=== PATIENT | female | born 1960 | race Caucasian/White ===

== ENCOUNTER 2018-03-06 20:23 | Emergency (ER) | payer BC, OTHER ==
--- NOTE | 2018-03-06 20:31 | PDOC ---
Rapid Medical Evaluation Time Seen by Provider: 03/06/18 20:24 Medical Evaluation: 03/06/18 20:24 I have performed a brief in-person evaluation of this patient. The patient presents with a chief complaint of: "I feel my speech is slurred" which started yesterday afternoon. Pertinent physical exam findings: Slight right facial droop. No pronator drift. Muffled voice. I have ordered the following: CBC, CMP, Coags, head CT, UA The patient will proceed to the ED for further evaluation. Discharge Disposition - Diagnosis Facial droop - Referrals - Patient Instructions - Post Discharge Activity
[2018-03-06 20:36] VITALS: BP 164/90; PULSE 110; TEMP 98.1; BMI 35.9
[2018-03-06 21:31] LABS: BASO % 0.3 % (0-2.0); EOS % 0.9 % (0-4.5); HEMATOCRIT 40.5 % (32.4-45.2); HEMOGLOBIN 13.4 GM/dL (10.7-15.3); LYMPH % 22.3 % (8-40); MCH 28.8 pg (25.7-33.7); MEAN CELL VOLUME 87.2 fl (80-96); MEAN PLT VOLUME 8.8 fl (7.5-11.1); MONO % 6.5 % (3.8-10.2); PLATELET COUNT 360 K/MM3 (134-434); RBC 4.64 M/mm3 (3.60-5.2); RDW 15.8 % (11.6-15.6); WHITE BLOOD COUNT 11.5 K/mm3 (4.0-10.0)
[2018-03-06] MEDS ORDERED: SODIUM CHLORIDE 0.9% 1000 ML INFUS.BAG IV ONE (22:00)
[2018-03-06] MEDS ORDERED: DEXAMETHASONE SOD PHOSPHATE 10 MG/1 ML VIAL IVPUSH ONE (22:00)
[2018-03-06] MEDS ORDERED: ACETAMINOPHEN 1000 MG/100 ML VIAL (NON FORMULARY) IVPB ONE (22:00)
[2018-03-06] MEDS ORDERED: KETOROLAC TROMETHAMINE 15 MG/ML VIAL IVPUSH ONE (22:00)
[2018-03-06 22:01] LABS: INR 1.04 (0.82-1.09); PROTHROMBIN TIME (PATIENT) 11.7 SEC (9.7-13.0)
--- NOTE | 2018-03-06 22:17 | PDOC ---
History of Present Illness - General History Source: Patient Exam Limitations: No Limitations - History of Present Illness Initial Comments: 03/06/18 22:20 The patient is a 57 year old female with no significant past medical history who presents to the ED with complaints of sore throat and difficulty swallowing / talking for the past day. The patient was seen at urgent care earlier where she was diagnosed with Strep throat and discharged with azithromycin and Z pack. She reports taking the first dose of antibiotic. The patient came to the ED because she is concerned about the way she is talking. She states she has never experienced this before and is concerned she is having a stroke. She reports feeling a lump in the back of her throat as well as a dry cough.The patient denies any fevers, chills, nausea, vomiting, diarrhea, SOB, CP, or urinary complaints. She denies any headache, visual changes, numbness or tingling, or any other focal neurological deficits. She denies any sick contacts. <Laverne Anthony - Last Filed: 03/06/18 22:20> <Ann Haq - Last Filed: 03/07/18 01:36> - General Chief Complaint: Facial Droop Stated Complaint: PAIN Time Seen by Provider: 03/06/18 20:24 Past History <Laverne Anthony - Last Filed: 03/06/18 22:20> - Past Medical History COPD: No - Surgical History Appendectomy: Yes - Suicide/Smoking/Psychosocial Hx Smoking History: Never smoked <Ann Haq - Last Filed: 03/07/18 01:36> - Past Medical History Allergies/Adverse Reactions: Allergies Allergy/AdvReac Type Severity Reaction Status Date / Time Penicillins Allergy Verified 03/06/18 20:27 Sulfa (Sulfonamide Allergy Verified 03/06/18 20:27 Antibiotics) Home Medications: Ambulatory Orders NK [No Known Home Medication] 03/06/18 Review of Systems - Review of Systems Able to Perform ROS?: Yes Comments:: 03/06/18 22:20 GENERAL/CONSTITUTIONAL: No fever or chills. No weakness. HEAD, EYES, EARS, NOSE AND THROAT: (+) Sore throat, difficulty swallowing. No change in vision. No ear pain or discharge. CARDIOVASCULAR: No chest pain or shortness of breath. RESPIRATORY: No cough, wheezing, or hemoptysis. GASTROINTESTINAL: No nausea, vomiting, diarrhea or constipation. GENITOURINARY: No dysuria, frequency, or change in urination. MUSCULOSKELETAL: No joint or muscle swelling or pain. No neck or back pain. SKIN: No rash NEUROLOGIC: No headache, vertigo, loss of consciousness, or change in strength/ sensation. ENDOCRINE: No increased thirst. No abnormal weight change. HEMATOLOGIC/LYMPHATIC: No anemia, easy bleeding, or history of blood clots. ALLERGIC/IMMUNOLOGIC: No hives or skin allergy. All Other Systems: Reviewed and Negative <Laverne Anthony - Last Filed: 03/06/18 22:20> *Physical Exam - Vital Signs Last Vital Signs Temp Pulse Resp BP Pulse Ox 98.1 F 110 H 18 164/90 98 03/06/18 20:33 03/06/18 20:33 03/06/18 20:33 03/06/18 20:33 03/06/18 20:33 - Physical Exam Comments: 03/06/18 22:21 GENERAL: Awake, alert, and fully oriented, in no acute distress HEAD: No signs of trauma EYES: PERRLA, EOMI, sclera anicteric, conjunctiva clear ENT: Posterior oropharynx is erythematous and swollen without any exudate. Auricles normal inspection, hearing grossly normal, nares patent. Moist mucosa NECK: Normal ROM, supple, no lymphadenopathy, JVD, or masses LUNGS: Breath sounds equal, clear to auscultation bilaterally. No wheezes, and no crackles HEART: Regular rate and rhythm, normal S1 and S2, no murmurs, rubs or gallops ABDOMEN: Soft, nontender, normoactive bowel sounds. No guarding, no rebound. No masses EXTREMITIES: Normal range of motion, no edema. No clubbing or cyanosis. No cords, erythema, or tenderness NEUROLOGICAL: Cranial nerves II through XII grossly intact. Normal speech, normal gait. 5/5 strength in bilateral upper and lower extremities. Sensation intact throughout. Normal cerebellar signs. Normal finger to nose. SKIN: Warm, Dry, normal turgor, no rashes or lesions noted. <Laverne Anthony - Last Filed: 03/06/18 22:20> - Vital Signs Last Vital Signs Temp Pulse Resp BP Pulse Ox 98.1 F 110 H 18 164/90 98 03/06/18 20:33 03/06/18 20:33 03/06/18 20:33 03/06/18 20:33 03/06/18 20:33 <Ann Haq - Last Filed: 03/07/18 01:36> Heart Score/ECG Review - ECG Intrepretation Comment:: 03/07/18 00:28 sinus at 74, nl axis, nl interval, no acute st/t wave findings <Ann Haq - Last Filed: 03/07/18 01:36> ED Treatment Course - LABORATORY CBC & Chemistry Diagram: 03/06/18 21:24 03/06/18 21:24 - ADDITIONAL ORDERS Additional order review: Laboratory Results 03/06/18 21:24 Blood Type Cancelled Antibody Screen Cancelled 03/06/18 21:24 RBC 4.64 MCV 87.2 MCHC 33.0 RDW 15.8 H MPV 8.8 Neutrophils % 70.0 Lymphocytes % 22.3 Monocytes % 6.5 Eosinophils % 0.9 Basophils % 0.3 <Laverne Anthony - Last Filed: 03/06/18 22:20> - LABORATORY CBC & Chemistry Diagram: 03/06/18 21:24 03/06/18 21:24 - ADDITIONAL ORDERS Additional order review: Laboratory Results 03/06/18 21:24 Blood Type Cancelled Antibody Screen Cancelled 03/06/18 21:24 RBC 4.64 MCV 87.2 MCHC 33.0 RDW 15.8 H MPV 8.8 Neutrophils % 70.0 Lymphocytes % 22.3 Monocytes % 6.5 Eosinophils % 0.9 Basophils % 0.3 <Ann Haq - Last Filed: 03/07/18 01:36> Medical Decision Making - Medical Decision Making 03/06/18 22:17 a/p: 57yo female with difficulty talking today -woke up with difficulty talking - hot potato voice on exam -went to urgent care and was dx with strep throat - started on azithromycin and prednisone -did not take the steroids - was concerned about her speaking and voice changes - no slurred speech , no unilateral weakness -no paresthesias, no weakness, no facial droop, no sensory changes -pt requesting to hold of on the ordered head ct at this time given + strep throat and hot potato voice as cause of voice changes. -will give ivf hydraiton, decadron iv, tylenol, toradol and reassess 03/07/18 01:29 no acute infarct on head ct L [facility]aggoner radiata low density of indeterminate age - will give neuro follow up for poss demyelinating disease pt feeling better has abx and steroids for strep throat 03/07/18 01:35 outpt strep + pending culture rapid strep negative <Ann Haq - Last Filed: 03/07/18 01:36> *DC/Admit/Observation/Transfer - Attestations Scribe Attestion: 03/06/18 22:25 Documentation prepared by Laverne Anthony, acting as medical terminologist for Ann Haq DO. <Laverne Anthony - Last Filed: 03/06/18 22:20> - Discharge Dispostion Decision to Admit order: No - Attestations Physician Attestion: 03/07/18 01:34 I, Dr. Ann Haq DO, attest that this document has been prepared under my direction and personally reviewed by me in its entirety. I further attest, that it accurately reflects all work, treatment, procedures and medical decision -making performed by me. <Ann Haq - Last Filed: 03/07/18 01:36> Diagnosis at time of Disposition: Strep throat - Discharge Dispostion Disposition: HOME Condition at time of disposition: Stable - Referrals Referrals: Kenyon Shi MD [Staff Physician] - Atul Arteaga MD [Staff Physician] - Chris Hewitt MD [Staff Physician] - - Patient Instructions Printed Discharge Instructions: DI for Strep Throat Additional Instructions: Please take all antibiotics as prescribed. Please return to the ED with any further concerns. If you feel your voice does not improve please follow up with the neurologist. Please make an appointment to see your PMD in 2 days. - Post Discharge Activity Forms/Work/School Notes: Back to Work
[2018-03-06] MEDS ORDERED: DEXAMETHASONE SOD PHOSPHATE 10 MG/1 ML VIAL ONE (22:23)
[2018-03-06] MEDS ORDERED: ACETAMINOPHEN INJECTION 100 ML IVPB ONE (22:24)
[2018-03-06] MEDS ORDERED: KETOROLAC TROMETHAMINE 15 MG/ML VIAL ONE (22:24)
[2018-03-06 22:28] LABS: ANION GAP 6 (8-16); BLOOD UREA NITROGEN 12 mg/dL (7-18); CALCIUM 8.9 mg/dL (8.5-10.1); CHLORIDE 108 mmol/L (98-107); CO2 27 mmol/L (21-32); GLUCOSE,RANDOM 93 mg/dL (74-106); POTASSIUM 4.2 mmol/L (3.5-5.1); SODIUM 141 mmol/L (136-145)
[2018-03-06 22:32] LABS: ALK PHOS 114 U/L (45-117); BILIRUBIN,TOTAL 0.3 mg/dL (0.2-1.0); CREATININE 0.8 mg/dL (0.55-1.02); SGOT/AST 16 U/L (15-37); SGPT/ALT 24 U/L (12-78); TOT PROT 8.1 g/dl (6.4-8.2)
[2018-03-07 00:31] LABS: URINE APPEARANCE SLCLOUDY; URINE BILIRUBIN NEGATIVE (<2.0 mg/dL); URINE COLOR YELLOW; URINE GLUCOSE (UA) NEGATIVE (NEGATIVE); URINE KETONE NEGATIVE (NEGATIVE); URINE LEUK ESTERASE NEGATIVE (NEGATIVE); URINE NITRITE NEGATIVE (NEGATIVE); URINE PROTEIN NEGATIVE (NEGATIVE); URINE UROBILINOGEN NEGATIVE mg/dL (0.2-1.0)
--- NOTE | 2018-03-07 11:42 | EKG ---
Test Reason : Blood Pressure : / mmHG Vent. Rate : 074 BPM Atrial Rate : 074 BPM P-R Int : 126 ms QRS Dur : 070 ms QT Int : 386 ms P-R-T Axes : 010 044 017 degrees QTc Int : 428 ms NORMAL SINUS RHYTHM NORMAL ECG WHEN COMPARED WITH ECG OF 21-JUL-2004 22:07, NO SIGNIFICANT CHANGE WAS FOUND Confirmed by DENYS AVENDANO MD ([id number]) on 03/07/2018 11:42:38 AM Referred By: Confirmed By:DENYS AVENDANO MD
== END 2018-03-07 01:59 | disposition home or self-care (01) ==
LOC: JER 20:23
PROC: 3E033NZ Introduction of Analgesics, Hypnotics, Sedatives into Peripheral Vein, Percutaneous Approach (ICD-10-PCS; principal; 2018-03-06)
PROC: 3E0333Z Introduction of Anti-inflammatory into Peripheral Vein, Percutaneous Approach (ICD-10-PCS; 2018-03-06)
PROC: 3E0333Z Introduction of Anti-inflammatory into Peripheral Vein, Percutaneous Approach (ICD-10-PCS; 2018-03-06)
DX: J02.0 Streptococcal pharyngitis (principal); B95.5 Unspecified streptococcus as the cause of diseases classified elsewhere
CPT/HCPCS: 36415; 70450-TC; 80053; 81003; 85025; 85610; 87070; 87430; 87633; 93005; 93010; 99282-25; 99285-25; J0131; J1100; J7030

== ENCOUNTER 2018-03-07 16:51 | Inpatient (IN) | payer BC, OTHER ==
--- NOTE | 2018-03-07 17:01 | PDOC ---
Rapid Medical Evaluation Time Seen by Provider: 03/07/18 16:56 Medical Evaluation: Allergies Allergy/AdvReac Type Severity Reaction Status Date / Time Penicillins Allergy Verified 03/06/18 20:27 Sulfa (Sulfonamide Allergy Verified 03/06/18 20:27 Antibiotics) 03/07/18 16:56 Pt c/o: abnormal findings on head ct last night, here for mri pt on exam: vss, pt with mild garbled speech, ao x 3 Pt ordered for: none ( needs MRI) p to proceed to the ED Discharge Disposition - Diagnosis Speech abnormality - Referrals - Patient Instructions - Post Discharge Activity
--- NOTE | 2018-03-07 18:14 | PDOC ---
History of Present Illness - General History Source: Patient Exam Limitations: No Limitations - History of Present Illness Initial Comments: 03/07/18 18:16 The patient is a 57 year old female with no significant past medical history who presents to the emergency department for evaluation of questionable head CT result and hoarse voice since yesterday morning. The patient reports having a hoarse voice attributed to strep throat. The patient reports being seen in ED last night (03/06) for sore throat, hoarse voice, and difficulty speaking. She reports having a positive strep swab after visiting her PCP at [facility] yesterday and was prescribed Zithromax and Prednisone. The patient reports increasing difficulty speaking and is worried about potential stroke since her [id number] had a stroke 6 weeks prior. She states she was advised to visit the ED today for evaluation of abnormal head CT reading which revealed small left lucency in waggoner radiata concerning for possible demyelinating disease or possible ms, and is here for an MRI. She notes she had a uti in November and was on antibiotics, but had a fever for the duration of the illness, which resolved. She also states she recently was diagnosed with erythema nodosum on her legs. Of note, the patient's reports that the patient received a perspinal surgery for abscess 6 weeks ago at [facility] and was on antibiotics(not sure what type) for 21 days. The patient denies chest pain, shortness of breath, headache, and dizziness. Denies fevers, chills, nausea, vomiting, diarrhea, and constipation. Denies dysuria, frequency, urgency, and hematuria. Denies sick contact. Allergies: Penicillins and Sulfonamide antibiotics. Past surgical history: Appendectomy and . Perispinal surgery for abscess (2018) Social history: No reported cigarette, alcohol, or drug use. <Patricia Guzman - Last Filed: 03/07/18 20:04> <Ann Haq - Last Filed: 03/08/18 01:39> - General Chief Complaint: Revisit,Radiology Variance Stated Complaint: SORE THROAT Time Seen by Provider: 03/07/18 16:56 Past History <Patricia Guzman - Last Filed: 03/07/18 20:04> - Past Medical History COPD: No - Surgical History Appendectomy: Yes - Suicide/Smoking/Psychosocial Hx Smoking History: Never smoked Hx Alcohol Use: No Drug/Substance Use Hx: No Substance Use Type: None <Ann Haq - Last Filed: 03/08/18 01:39> - Past Medical History Allergies/Adverse Reactions: Allergies Allergy/AdvReac Type Severity Reaction Status Date / Time Penicillins Allergy Difficulty Verified 03/07/18 16:56 Breathing Sulfa (Sulfonamide Allergy Rash Verified 03/07/18 16:56 Antibiotics) Home Medications: Ambulatory Orders NK [No Known Home Medication] 03/06/18 Review of Systems - Review of Systems Able to Perform ROS?: Yes Comments:: GENERAL/CONSTITUTIONAL: No fever or chills. No weakness. HEAD, EYES, EARS, NOSE AND THROAT: (+)Sore throat. No change in vision. No ear pain or discharge. GASTROINTESTINAL: No nausea, vomiting, diarrhea or constipation. GENITOURINARY: No dysuria, frequency, or change in urination. CARDIOVASCULAR: No chest pain or shortness of breath. RESPIRATORY: No cough, wheezing, or hemoptysis. MUSCULOSKELETAL: No joint or muscle swelling or pain. No neck or back pain. SKIN: No rash NEUROLOGIC: No headache, vertigo, loss of consciousness, or change in strength/ sensation. ENDOCRINE: No increased thirst. No abnormal weight change. HEMATOLOGIC/LYMPHATIC: No anemia, easy bleeding, or history of blood clots. ALLERGIC/IMMUNOLOGIC: No hives or skin allergy. <Patricia Guzman - Last Filed: 03/07/18 20:04> *Physical Exam - Vital Signs Last Vital Signs Temp Pulse Resp BP Pulse Ox 98.3 F 116 H 22 126/114 98 03/07/18 16:57 03/07/18 16:57 03/07/18 16:57 03/07/18 16:57 03/07/18 16:57 - Physical Exam Comments: Constitutional: (+)Anxious. Awake, alert, oriented. Head: Normocephalic. Atraumatic Eyes: PERRL. EOMI. Conjunctivae are not pale. ENT: (+)Posterior pharynx is red.(+)Hot potato voice, posterior pharynx with exudates. Mucous membranes are moist and intact. Uvula midline. Neck: Supple. Full ROM. No lymphadenopathy. Cardiovascular: Regular rate. Regular rhythm. S1, S2 regular. Distal pulses are 2+ and symmetric. Pulmonary/Chest: No evidence of respiratory distress. Clear to auscultation bilaterally No wheezing, rales or rhonchi. Abdominal: Soft and non-distended. There is no tenderness. No rebound, guarding or rigidity. No organomegaly. No palpable masses. Good bowel sounds. Back: No CVA tenderness. Musculoskeletal: No edema. No cyanosis. No clubbing. Full range of motion in all extremities. Nocalf tenderness. Radial/pedal pulses are intact and 2+ bilaterally Skin: Skin is warm and dry. No petechiae. No purpura. Neurological: (+)Mild right asymmetric smile. Alert and oriented to person, place, and time. Psychiatric: Good eye contact. Normal interaction, affect and behavior. <Patricia Guzman - Last Filed: 03/07/18 20:04> - Vital Signs Last Vital Signs Temp Pulse Resp BP Pulse Ox 98.3 F 116 H 22 126/114 98 03/07/18 16:57 03/07/18 16:57 03/07/18 16:57 03/07/18 16:57 03/07/18 16:57 <Ann Haq - Last Filed: 03/08/18 01:39> Heart Score/ECG Review - ECG Intrepretation Comment:: 03/07/18 22:19 sinus at 76, nl axis, nl interval, no acute st/t wave findings <Ann Haq - Last Filed: 03/08/18 01:39> ED Treatment Course - LABORATORY CBC & Chemistry Diagram: 03/07/18 20:21 03/07/18 20:21 - RADIOLOGY Radiology Studies Ordered: Category Date Time Status BRAIN MRI W/O CONTRAST [MRI] Stat MRI 03/07/18 16:58 Taken <Ann Haq - Last Filed: 03/08/18 01:39> Medical Decision Making - Medical Decision Making Case discussed with Dr. Arteaga at 18:53. <Patricia Guzman - Last Filed: 03/07/18 20:04> - Medical Decision Making 03/07/18 18:10 a/p: 57yo female with a hoarse voice since waking up yesterday morning -seen in the ED last night -ct showed a lucency in the L waggoner radiata concerning for poss cva vs demyelinating disease -call placed to the patient to return to the ED for further eval with MRI -nonfocal neuro -rapid strep at [facility] by PMD was + - on azithro and prednisone no expressive or receptive aphasia -MRI ordered labs reviewed from yesterday and mildly elevated wbc 03/07/18 20:[address] Arteaga - recommends admission for cva workup echo, carotids, lipids lipitor 40 asa 81 daily will see patient in consult 03/07/18 20:49 with further hx intermittent infections x 3 months on and off abx will send cultures took abx today for strep throat will order ct soft tissue neck discussed case with dr bonilla at 7 who recommends calling patient with ct results pt updated on imaging results and plan agrees to stay for further eval 03/07/18 20:[address] Pabon - pending ct soft tissue neck - will need admission for cva workup ? embolic source? 03/07/18 22:57 ct soft tissue neck wihtout acute abscess 03/08/18 01:39 discussed lab and imaging results with the patient <Ann Haq - Last Filed: 03/08/18 01:39> *DC/Admit/Observation/Transfer - Attestations Scribe Attestion: Documentation prepared by Patricia Guzman, acting as nuclear medical tech for Ann Haq DO. <Patricia Guzman - Last Filed: 03/07/18 20:04> - Discharge Dispostion Decision to Admit order: Yes - Attestations Physician Attestion: 03/07/18 20:51 I, Dr. Ann Haq DO, attest that this document has been prepared under my direction and personally reviewed by me in its entirety. I further attest, that it accurately reflects all work, treatment, procedures and medical decision -making performed by me. <Ann Haq - Last Filed: 03/08/18 01:39> Diagnosis at time of Disposition: Speech abnormality, CVA (cerebral vascular accident), Strep throat - Discharge Dispostion Condition at time of disposition: Guarded
[2018-03-07] MEDS ORDERED: ASPIRIN 81 MG CHEWABLE TABLETS PO ONE (19:01)
[2018-03-07] MEDS ORDERED: ASPIRIN 81 MG CHEWABLE TABLETS ONE (19:21)
[2018-03-07 20:35] LABS: BASO % 0.2 % (0-2.0); HEMATOCRIT 40.4 % (32.4-45.2); HEMOGLOBIN 13.5 GM/dL (10.7-15.3); LYMPH % 9.9 % (8-40); MCH 28.9 pg (25.7-33.7); MCHC 33.4 g/dl (32.0-36.0); MEAN CELL VOLUME 86.6 fl (80-96); MEAN PLT VOLUME 9.1 fl (7.5-11.1); MONO % 3.5 % (3.8-10.2); NEUT % 86.4 % (42.8-82.8); PLATELET COUNT 383 K/MM3 (134-434); RBC 4.66 M/mm3 (3.60-5.2); RDW 15.6 % (11.6-15.6); WHITE BLOOD COUNT 15.5 K/mm3 (4.0-10.0)
[2018-03-07 21:01] LABS: INR 1.09 (0.82-1.09); PROTHROMBIN TIME (PATIENT) 12.3 SEC (9.7-13.0)
[2018-03-07 21:03] LABS: ACTIVATED PTT 29.6 SECONDS (26.9-34.4)
[2018-03-07 21:13] LABS: ALBUMIN 3.9 g/dl (3.4-5.0); ANION GAP 7 (8-16); BILIRUBIN,TOTAL 0.2 mg/dL (0.2-1.0); BLOOD UREA NITROGEN 16 mg/dL (7-18); CALCIUM 8.9 mg/dL (8.5-10.1); CHLORIDE 108 mmol/L (98-107); CHOLESTEROL 183 mg/dL (50-200); CO2 25 mmol/L (21-32); CREATININE 0.8 mg/dL (0.55-1.02); GLUCOSE,RANDOM 119 mg/dL (74-106); POTASSIUM 4.6 mmol/L (3.5-5.1); SGOT/AST 19 U/L (15-37); SGPT/ALT 24 U/L (12-78); SODIUM 140 mmol/L (136-145); TOT PROT 8.1 g/dl (6.4-8.2); TRIGLYCERIDES 65 mg/dL (35-160)
[2018-03-07 21:14] LABS: ALK PHOS 108 U/L (45-117); HDL CHOLESTEROL 52 mg/dL (40-60)
--- NOTE | 2018-03-07 21:41 | HP ---
CHIEF COMPLAINT:recalled for MRI findings PCP: [facility] HISTORY OF PRESENT ILLNESS: 57 yr old woman with no significant PMhx presented to ED yesterday for difficulty swallowing and talking for 1 day. She had been seen at urgent care and dx'd with strep throat (rapid bedside at urgent care was positive). She was started on Azithromycin 250mg po 1 tablet which she took yesterday and one dose today. This morning when she woke up she notes a change in her voice and trouble swallowing. As per her she was having trouble putting words together and the tone of her voice is harsher now than her usual. feels that speech is going in and out, this is still not her baseline for speech pattern and voice. She denies facial droop, asymmetrical loss of muscle tone, syncope, fevers. She was at [facility] in November and underwent a paraspinal abscess drainage. She had been having a rash in her legs, feeling weak and had a cyst that required drainage, was told that all cultures were negative for bacterial growth. The rash has since cleared, when she had a biopsy of the rash, she was told there was no pathology. ER course was notable for: (1) MRI (2) soft tissue neck CT (3) Recent Travel: none PAST MEDICAL HISTORY: denies HTN, HLD, DM. says she had a full physical last month with her physician at [facility] and was told she had no medical conditions. PAST SURGICAL HISTORY: x3, appendectomy age 4 Social History: Smoking: denies Alcohol:denies Drugs: denies Family History: denies Fm of strokes/DE, DM, HTN Allergies Penicillins Allergy (Verified 03/07/18 16:56) - was found on an allergy test at age 4 Difficulty Breathing Sulfa (Sulfonamide Antibiotics) Allergy (Verified 03/07/18 16:56) Rash HOME MEDICATIONS: Home Medications Medication Instructions Recorded NK [No Known Home Medication] 03/06/18 REVIEW OF SYSTEMS CONSTITUTIONAL: Absent: fever, chills, diaphoresis, generalized weakness, malaise, loss of appetite, weight change HEENT: Present:difficulty swallowing, throat pain, Absent: rhinorrhea, nasal congestion, throat swelling, , mouth swelling, visual changes CARDIOVASCULAR: Absent: chest pain, syncope, palpitations, irregular heart rate, lightheadedness , peripheral edema RESPIRATORY: Absent: cough, shortness of breath, dyspnea with exertion, orthopnea, wheezing, stridor, hemoptysis GASTROINTESTINAL: Absent: abdominal pain, abdominal distension, nausea, vomiting, diarrhea, constipation GENITOURINARY: Absent: dysuria, frequency, urgency, hesitancy, hematuria, flank pain MUSCULOSKELETAL: Absent: myalgia, arthralgia, joint swelling, back pain, neck pain SKIN: Absent: rash, itching, pallor HEMATOLOGIC/IMMUNOLOGIC: Absent: easy bleeding, easy bruising, lymphadenopathy, frequent infections ENDOCRINE: Absent: unexplained weight gain, unexplained weight loss, heat intolerance, cold intolerance NEUROLOGIC: Absent: headache, focal weakness or paresthesias, dizziness, unsteady gait, seizure, mental status changes PHYSICAL EXAMINATION Vital Signs - 24 hr 03/07/18 16:57 Temperature 98.3 F Pulse Rate 116 H Respiratory 22 Rate Blood Pressure 126/114 O2 Sat by Pulse 98 Oximetry (%) GENERAL: Awake, alert, and fully oriented, in no acute distress. HEAD: Normal with no signs of trauma. EYES: Pupils equal, round and reactive to light, extraocular movements intact, sclera anicteric, conjunctiva clear. No lid lag. EARS, NOSE, THROAT: oropharynx clear with erythema, no exudates, no tonsilar enlargement, Moist mucous membranes. NECK: Normal range of motion, supple without lymphadenopathy, JVD, or masses. LUNGS: Breath sounds equal, clear to auscultation bilaterally. No wheezes, and no crackles. No accessory muscle use. HEART: Regular rate and rhythm, normal S1 and S2 without murmur, rub or gallop. ABDOMEN: obese, Soft, nontender, not distended, normoactive bowel sounds, no guarding, no rebound, no masses. MUSCULOSKELETAL: Normal range of motion at all joints. No bony deformities or tenderness. No CVA tenderness. well-healed scar in upper thoracic spine. no paraspinal tenderness UPPER EXTREMITIES: 2+ radial pulses, warm, well-perfused. No cyanosis. No clubbing. No peripheral edema. LOWER EXTREMITIES: 2+ DP pulses, warm, well-perfused. No calf tenderness. No peripheral edema. NEUROLOGICAL: Cranial nerves II-XII intact. facial symmetry, 5/5 hand beader tender/ extension and flexion in triceps/biceps/wrists, hip extension, dorsi/plantar flexion. uvula and tongue midline PSYCHIATRIC: Cooperative. Good eye contact. Appropriate mood and affect. SKIN: Warm, dry, normal turgor, no rashes or lesions noted, normal capillary refill. Laboratory Results - last 24 hr 03/07/18 03/07/18 03/07/18 20:21 20:21 20:21 WBC 15.5 H D RBC 4.66 Hgb 13.5 Hct 40.4 MCV 86.6 MCH 28.9 MCHC 33.4 RDW 15.6 Plt Count 383 MPV 9.1 Neutrophils % 86.4 H D Lymphocytes % 9.9 D Monocytes % 3.5 L Eosinophils % 0.0 D Basophils % 0.2 PT with INR 12.30 INR 1.09 PTT (Actin FS) 29.6 Sodium 140 Potassium 4.6 Chloride 108 H Carbon Dioxide 25 Anion Gap 7 L BUN 16 Creatinine 0.8 Creat Clearance w eGFR > 60 Random Glucose 119 H Calcium 8.9 Total Bilirubin 0.2 D AST 19 ALT 24 Alkaline Phosphatase 108 Creatine Kinase 398 H Creatine Kinase Index 0.5 CK-MB (CK-2) 2.174 Troponin I < 0.02 Total Protein 8.1 Albumin 3.9 Triglycerides 65 Cholesterol 183 Total LDL Cholesterol 128 H HDL Cholesterol 52 ASSESSMENT/PLAN: 57 yr woman with recent hx of paraspinal cyst abscess drainage, being treated for strep throat found to have CVA on MRI admitted for further work-up #CVA work-up - Neuro consult Dr. Arteaga, pt not a candidate for tpa. will f.u in the am - carotid doppler, telemonitoring, echo, speech and swallow eval, physical therapy eval, neuro checks q4hr - lipitor given in the ED. lipid panel with total cholesterol <200, LDL not at goal, continue statin qHS - unclear what caused the stroke, concern is for possible septic emboli from an abscess - NPO until speech/swallow eval, bed rest until PT eval #Strep throat, likely the cause of leucocytosis - complete 5-day treatment, has received 2 days already, needs 3 more days, azithromycin 250mg po daily - r/o throat abscess with CT scan - r/o viral etiologies with respiratory multiplex PCR -DVT prophylaxis- heparin sc q8hrs -Diet: NPO until evaluation, appears to have tolerated pills well in ED Visit type - Emergency Visit Emergency Visit: Yes ED Registration Date: 03/07/18 Care time: The patient presented to the Emergency Department on the above date and was hospitalized for further evaluation of their emergent condition. - New Patient This patient is new to me today: Yes Date on this admission: 03/07/18 - Critical Care Critical Care patient: No Hospitalist Screening - Colonoscopy Questionnaire Colonoscopy Questionnaire: Colonoscopy Questionnaire - Patient: 50 - 75 years old and never had a screening colonoscopy: Unknown History of colon or rectal polyps, or CA: Unknown History of IBD, Crohn's disease or UC: Unknown History of abdominal radiation therapy as a child: Unknown - Relative: 1 with colon or rectal CA, or polyps at age 60 or younger: Unknown Colon or rectal CA diagnosed at age 45 or younger: Unknown Multiple relatives with colon or rectal CA: Unknown - Outcome: Screening Result: Negative Screen
[2018-03-07] MEDS ORDERED: ATORVASTATIN CA 40 MG TABLET (FP) PO ONE (22:20)
--- NOTE | 2018-03-07 22:33 | PN ---
Teaching Attending Note Name of Resident: Frank Okeefe ATTENDING PHYSICIAN STATEMENT I saw and evaluated the patient. Chart, data, imaging reviewed. I reviewed the resident's note and discussed the case with the resident. I agree with the resident's findings and plan as documented. SUBJECTIVE: 57yo woman who presented to ER 03/06 with c/o hoarseness and for last few days. She was diagnosed with strep throat at [facility] 2 days ago and given azithromycin (severe penicillin allergy) and prednisone. Came to ER yesterday for persistent hoarseness and d/c home, recalled after MRI of brain officially read small acute left frontal waggoner radiata infarct. Patient denied any neurological symptoms. She reports that her speech has improved since taking azithromycin and steroid. Dr. Arteaga of neurology was consulted and patient is not a candidate for TPA. OBJECTIVE: Last Vital Signs Temp Pulse Resp BP Pulse Ox 98.3 F 116 H 22 126/114 98 03/07/18 16:57 03/07/18 16:57 03/07/18 16:57 03/07/18 16:57 03/07/18 16:57 general -nontoxic appearing, nad, obese, hoarse voice heent - at, nc, oral pharynx with mild erythema but no exudates seen neck -supple, no neck lymphadenopathy appreciated, no obvious neck masses seen cv- s1+s2+rrr chest- cta b/l abdomen- soft, nt, BS+ skin- no rashes appreciated Neuro - no focal deficits seen, cranial nerves intact Abnormal Lab Results 03/07/18 03/07/18 20:21 20:21 WBC 15.5 H D Neutrophils % 86.4 H D Monocytes % 3.5 L Chloride 108 H Anion Gap 7 L Random Glucose 119 H Creatine Kinase 398 H Total LDL Cholesterol 128 H MRI of brain report reviewed. ASSESSMENT AND PLAN: 57yo woman with acute left frontal waggoner radiata infarct. Neurology consulted and aware. Not candidate for tpa. #Acute CVA -admit to telemetry -NPO -bed rest -transthoracic echo -b/l carotid doppler U/S -neurochecks q4hrs -neurology consult -speech and swallow eval -PT evaluation -ASA -statin #pharyngitis - diagnosed with strep throat in [facility], hoarseness, should rule out abscess in pharynx/neck. -contoninue azithromycin 250mg PO for 3 more days (5 day coarse ) -Neck soft tissue CT with contrast to r/o abscess -if fevers, can send blood cultures x2 -respiratory multiplex PCR -DVT prophylaxis- heparin sc
[2018-03-07] MEDS ORDERED: ATORVASTATIN CA 40 MG TABLET (FP) ONE (23:39)
[2018-03-08 05:00] VITALS: BMI 41.3
[2018-03-08] MEDS: HEPARIN NA (PORCINE) 5,000 UNITS/ML 1ML VIAL SQ SCH ×3 (05:26→22:03)
[2018-03-08 07:05] LABS: BASO % 0.1 % (0-2.0); HEMATOCRIT 36.6 % (32.4-45.2); HEMOGLOBIN 12.2 GM/dL (10.7-15.3); LYMPH % 16.1 % (8-40); MCHC 33.2 g/dl (32.0-36.0); MEAN CELL VOLUME 87.3 fl (80-96); MEAN PLT VOLUME 9.1 fl (7.5-11.1); MONO % 6.1 % (3.8-10.2); NEUT % 77.7 % (42.8-82.8); PLATELET COUNT 322 K/MM3 (134-434); RBC 4.19 M/mm3 (3.60-5.2); RDW 15.5 % (11.6-15.6); WHITE BLOOD COUNT 14.2 K/mm3 (4.0-10.0)
[2018-03-08 07:24] LABS: CHLORIDE 108 mmol/L (98-107); POTASSIUM 3.9 mmol/L (3.5-5.1); SODIUM 141 mmol/L (136-145)
[2018-03-08 07:30] LABS: ANION GAP 7 (8-16); BLOOD UREA NITROGEN 17 mg/dL (7-18); CALCIUM 8.5 mg/dL (8.5-10.1); CO2 26 mmol/L (21-32); CREATININE 0.7 mg/dL (0.55-1.02); GLUCOSE,RANDOM 102 mg/dL (74-106)
[2018-03-08 08:58] LABS: CHOLESTEROL 152 mg/dL (50-200); HDL CHOLESTEROL 39 mg/dL (40-60); MAGNESIUM 2.3 mg/dL (1.8-2.4); PHOSPHOROUS 3.4 mg/dL (2.5-4.9)
[2018-03-08 09:06] LABS: TRIGLYCERIDES 94 mg/dL (35-160)
--- NOTE | 2018-03-08 09:12 | PN ---
Teaching Attending Note Name of Resident: Cas Shipley ATTENDING PHYSICIAN STATEMENT I saw and evaluated the patient. I reviewed the resident's note and discussed the case with the resident. I agree with the resident's findings and plan as documented with exceptions below. SUBJECTIVE: Patient seen and examined. still with speech change, noted water drooping right angle of mouth while drinking. No coughing or choking. Feels a littler better, denies sore throat currently. OBJECTIVE: Vital Signs Period Temp Pulse Resp BP Sys/Odell Pulse Ox Last 24 Hr 97.5 F-98.3 F 61-116 18-22 126-165/73-114 96-98 Intake & Output 03/05/18 03/06/18 03/07/18 03/08/18 23:59 23:59 23:59 23:59 Intake Total 130 Balance 130 Weight 195 lb 218 lb 9.6 oz General: lying in bed in no acute distress Neuro: AAOx3, right facial droop, tongue deviated to left, facial sensation intact to gross touch, power 5/5 generalized, no pronator drift, babinski neg, DTR bilaterally symmetric, mild dysarthria noted HEENT: no tonsillar swelling or pharyngeal erythema noted, no discharge Chest: CTAB, no rales or wheezing Abdomen: soft, obese, NT Extremities: no edema Home Medication List Medication Instructions Recorded Confirmed Type NK [No Known Home Medication] 03/06/18 03/07/18 History Active Medications Generic Name Dose Route Start Last Admin Trade Name Freq PRN Reason Stop Dose Admin Aspirin 81 mg 03/08/18 10:00 Ecotrin - PO DAILY SANTOS Atorvastatin Calcium 40 mg 03/08/18 22:00 Lipitor - PO HS SANTOS Azithromycin 250 mg 03/08/18 10:00 Zithromax - PO 03/10/18 10:01 DAILY SANTOS Heparin Sodium (Porcine) 5,000 unit 03/08/18 06:00 03/08/18 05:26 Heparin - SQ Not Given TID [facility] Laboratory Results - last 24 hr 03/07/18 03/07/18 03/07/18 20:21 20:21 20:21 WBC 15.5 H D RBC 4.66 Hgb 13.5 Hct 40.4 MCV 86.6 MCH 28.9 MCHC 33.4 RDW 15.6 Plt Count 383 MPV 9.1 Neutrophils % 86.4 H D Lymphocytes % 9.9 D Monocytes % 3.5 L Eosinophils % 0.0 D Basophils % 0.2 PT with INR 12.30 INR 1.09 PTT (Actin FS) 29.6 Sodium 140 Potassium 4.6 Chloride 108 H Carbon Dioxide 25 Anion Gap 7 L BUN 16 Creatinine 0.8 Creat Clearance w eGFR > 60 Random Glucose 119 H Calcium 8.9 Phosphorus Magnesium Total Bilirubin 0.2 D AST 19 ALT 24 Alkaline Phosphatase 108 Creatine Kinase 398 H Creatine Kinase Index 0.5 CK-MB (CK-2) 2.174 Troponin I < 0.02 Total Protein 8.1 Albumin 3.9 Triglycerides 65 Cholesterol 183 Total LDL Cholesterol 128 H HDL Cholesterol 52 TSH 03/08/18 03/08/18 03/08/18 05:35 05:35 05:35 WBC 14.2 H RBC 4.19 Hgb 12.2 Hct 36.6 MCV 87.3 MCH 29.0 MCHC 33.2 RDW 15.5 Plt Count 322 MPV 9.1 Neutrophils % 77.7 Lymphocytes % 16.1 D Monocytes % 6.1 Eosinophils % 0.0 Basophils % 0.1 PT with INR INR PTT (Actin FS) Sodium 141 Potassium 3.9 Chloride 108 H Carbon Dioxide 26 Anion Gap 7 L BUN 17 Creatinine 0.7 Creat Clearance w eGFR Random Glucose 102 Calcium 8.5 Phosphorus 3.4 Cancelled Magnesium 2.3 Cancelled Total Bilirubin AST ALT Alkaline Phosphatase Creatine Kinase Creatine Kinase Index CK-MB (CK-2) Troponin I Total Protein Albumin Triglycerides 94 Cancelled Cholesterol 152 Cancelled Total LDL Cholesterol 107 H Cancelled HDL Cholesterol 39 L Cancelled TSH 1.24 Cancelled Microbiology 03/08/18 00:01 Nasopharyngeal Swab Influenza Types A,B Antigen (PATSY) - Final 03/08/18 00:01 Nasopharyngeal Swab - Final MRI brain results reviewed CT neck results reviewed Carotid doppler - neg for hemodynamically significant stenosis ASSESSMENT AND PLAN: 57 yof with sore throat/"hot potato" voice, recently diagnosed Strep throat outpatient comes with persistent speech changes, found with Acute left waggoner radiata and ?hippocampal CVA. -Acute left waggoner radiate/?hippocampal CVA, ?embolic, r/o infectious source -Streptococcal pharyngitis -H/o paraspinal abscess in 11/2017 Plan: Neuro consult. Neuro checks. MRI brain noted. ?Embolic. Continue telemetry, check 2D echo, cardiology input. GIven recent diagnosis on strep pharyngitis, infectious source on differential but low suspicion, follow up blood cultures. CT neck neg for collection or concerns. Add lipitor 40 mg hs. Continue ASA. speech/swallow janey. PT eval. Dispo pending resolution of medical issues. Plan discussed with patient in detail, all questions answered.
--- NOTE | 2018-03-08 09:37 | EKG ---
Test Reason : Blood Pressure : / mmHG Vent. Rate : 076 BPM Atrial Rate : 076 BPM P-R Int : 138 ms QRS Dur : 078 ms QT Int : 374 ms P-R-T Axes : -06 034 028 degrees QTc Int : 420 ms NORMAL SINUS RHYTHM NORMAL ECG WHEN COMPARED WITH ECG OF 07-MAR-2018 00:19, NO SIGNIFICANT CHANGE WAS FOUND Confirmed by JASON STREET MD ([id number]) on 03/08/2018 9:37:14 AM Referred By: Confirmed By:JASON STREET MD
--- NOTE | 2018-03-08 09:44 | CONSULT ---
Consult - text type - Consultation Consultation Note: Neurology CHIEF COMPLAINT:recalled for MRI findings PCP: [facility] HISTORY OF PRESENT ILLNESS: 57 yr old woman with no significant PMhx presented to ED one day before admission for difficulty swallowing and talking for 1 day. She had been seen at urgent care and dx'd with strep throat (rapid bedside at urgent care was positive). She was started on Azithromycin 250mg po 1 tablet which she took one dose as well as second dose. She woke up she notes a change in her voice and trouble swallowing. As per her she was having trouble putting words together and the tone of her voice is harsher now than her usual. feels that speech is going in and out, this is still not her baseline for speech pattern and voice. She denies facial droop, asymmetrical loss of muscle tone, syncope, fevers. She was at [facility] in November and underwent a paraspinal abscess drainage. She had been having a rash in her legs, feeling weak and had a cyst that required drainage, was told that all cultures were negative for bacterial growth. The rash has since cleared, when she had a biopsy of the rash, she was told there was no pathology. She completed MRI brain which I reviewed and discussed in detail. She was visibly upset this morning. Infarct noted in L frontal waggoner radiata but no extremity weakness. Carotid dopplers completed and without HD significant stenosis. Discussed taking daily ASA 81mg. LDL 128 and recommended statin to her. May benefit from speech therapy, her speech did seem better during my conversation and she admitted this as well. CT of neck also reviewed and negative. Recent Travel: none PAST MEDICAL HISTORY: denies HTN, HLD, DM. says she had a full physical last month with her physician at [facility] and was told she had no medical conditions. PAST SURGICAL HISTORY: x3, appendectomy age 4 Social History: Smoking: denies Alcohol:denies Drugs: denies Family History: denies Fm of strokes/GA, DM, HTN Allergies Penicillins Allergy (Verified 03/07/18 16:56) - was found on an allergy test at age 4 Difficulty Breathing Sulfa (Sulfonamide Antibiotics) Allergy (Verified 03/07/18 16:56) Rash HOME MEDICATIONS: Home Medications Medication Instructions Recorded NK [No Known Home Medication] 03/06/18 REVIEW OF SYSTEMS CONSTITUTIONAL: Absent: fever, chills, diaphoresis, generalized weakness, malaise, loss of appetite, weight change HEENT: Present:difficulty swallowing, throat pain, Absent: rhinorrhea, nasal congestion, throat swelling, , mouth swelling, visual changes CARDIOVASCULAR: Absent: chest pain, syncope, palpitations, irregular heart rate, lightheadedness , peripheral edema RESPIRATORY: Absent: cough, shortness of breath, dyspnea with exertion, orthopnea, wheezing, stridor, hemoptysis GASTROINTESTINAL: Absent: abdominal pain, abdominal distension, nausea, vomiting, diarrhea, constipation GENITOURINARY: Absent: dysuria, frequency, urgency, hesitancy, hematuria, flank pain MUSCULOSKELETAL: Absent: myalgia, arthralgia, joint swelling, back pain, neck pain SKIN: Absent: rash, itching, pallor HEMATOLOGIC/IMMUNOLOGIC: Absent: easy bleeding, easy bruising, lymphadenopathy, frequent infections ENDOCRINE: Absent: unexplained weight gain, unexplained weight loss, heat intolerance, cold intolerance NEUROLOGIC: Absent: headache, focal weakness or paresthesias, dizziness, unsteady gait, seizure, mental status changes PHYSICAL EXAMINATION Vital Signs Period Temp Pulse Resp BP Sys/Odell Pulse Ox Last 24 Hr 97.5 F-98.3 F 61-116 18-22 126-165/73-114 96-98 GENERAL: Awake, alert, and fully oriented, in no acute distress. HEAD: Normal with no signs of trauma. EYES: Pupils equal, round and reactive to light, extraocular movements intact, sclera anicteric, conjunctiva clear. No lid lag. EARS, NOSE, THROAT: oropharynx clear with erythema, no exudates, no tonsilar enlargement, Moist mucous membranes. NECK: Normal range of motion, supple without lymphadenopathy, JVD, or masses. LUNGS: Breath sounds equal, clear to auscultation bilaterally. No wheezes, and no crackles. No accessory muscle use. HEART: Regular rate and rhythm, normal S1 and S2 without murmur, rub or gallop. ABDOMEN: obese, Soft, nontender, not distended, normoactive bowel sounds, no guarding, no rebound, no masses. MUSCULOSKELETAL: Normal range of motion at all joints. No bony deformities or tenderness. No CVA tenderness. well-healed scar in upper thoracic spine. no paraspinal tenderness UPPER EXTREMITIES: 2+ radial pulses, warm, well-perfused. No cyanosis. No clubbing. No peripheral edema. LOWER EXTREMITIES: 2+ DP pulses, warm, well-perfused. No calf tenderness. No peripheral edema. NEUROLOGICAL: Cranial nerves II-XII intact, slightly hypophonic but no dysarthria, no facial symmetry, 5/5 hand oven dumper/extension and flexion in triceps/ biceps/wrists, hip extension, dorsi/plantar flexion. uvula and tongue midline PSYCHIATRIC: Cooperative. Good eye contact. Appropriate mood and affect. SKIN: Warm, dry, normal turgor, no rashes or lesions noted, normal capillary refill. CBCD WBC 14.2 K/mm3 (4.0-10.0) H 03/08/18 05:35 RBC 4.19 M/mm3 (3.60-5.2) 03/08/18 05:35 Hgb 12.2 GM/dL (10.7-15.3) 03/08/18 05:35 Hct 36.6 % (32.4-45.2) 03/08/18 05:35 MCV 87.3 fl (80-96) 03/08/18 05:35 MCHC 33.2 g/dl (32.0-36.0) 03/08/18 05:35 RDW 15.5 % (11.6-15.6) 03/08/18 05:35 Plt Count 322 K/MM3 (134-434) 03/08/18 05:35 MPV 9.1 fl (7.5-11.1) 03/08/18 05:35 CMP Sodium 141 mmol/L (136-145) 03/08/18 05:35 Potassium 3.9 mmol/L (3.5-5.1) 03/08/18 05:35 Chloride 108 mmol/L (98-107) H 03/08/18 05:35 Carbon Dioxide 26 mmol/L (21-32) 03/08/18 05:35 Anion Gap 7 (8-16) L 03/08/18 05:35 BUN 17 mg/dL (7-18) 03/08/18 05:35 Creatinine 0.7 mg/dL (0.55-1.02) 03/08/18 05:35 Creat Clearance w eGFR > 60 (>60) 03/07/18 20:21 Random Glucose 102 mg/dL (74-106) 03/08/18 05:35 Calcium 8.5 mg/dL (8.5-10.1) 03/08/18 05:35 Total Bilirubin 0.2 mg/dL (0.2-1.0) D 03/07/18 20:21 AST 19 U/L (15-37) 03/07/18 20:21 ALT 24 U/L (12-78) 03/07/18 20:21 Alkaline Phosphatase 108 U/L (45-117) 03/07/18 20:21 Total Protein 8.1 g/dl (6.4-8.2) 03/07/18 20:21 Albumin 3.9 g/dl (3.4-5.0) 03/07/18 20:21 CARDIAC ENZYMES Creatine Kinase 398 IU/L (26-192) H 03/07/18 20:21 Troponin I < 0.02 ng/ml (0.00-0.05) 03/07/18 20:21 ASSESSMENT/PLAN: 57 yr old woman with no significant PMhx presented to ED one day before admission for difficulty swallowing and talking for 1 day. She completed MRI brain which I reviewed and discussed in detail. Infarct noted in L frontal waggoner radiata but no extremity weakness. Carotid dopplers completed and without HD significant stenosis. Discussed taking daily ASA 81mg. LDL 128 and recommended statin to her. May benefit from speech therapy, her speech did seem better during my conversation and she admitted this as well. CT of neck also reviewed and negative. Telemetry monitoring Speech/swallow eval recommended No longer permissive HTN, goal range <160/90 for now <130/80 as outpatient DVT ppx
[2018-03-08] MEDS: ASPIRIN COATED 81 MG TABLET.EC PO SCH (10:21)
[2018-03-08] MEDS: AZITHROMYCIN 250 MG TABLET PO SCH (10:21)
--- NOTE | 2018-03-08 10:27 | CONSULT ---
Admitting History and Physical - Primary Care Physician PCP: Jason Foster - Admission History of Present Illness: 57 yr woman with recent hx of paraspinal cyst abscess drainage, being treated for strep throat admitted with persistent speech changes, found with Acute left waggoner radiata and ?hippocampal CVA. -Acute left waggoner radiate/?hippocampal CVA, ?embolic, r/o infectious source -Streptococcal pharyngitis -H/o paraspinal abscess in 11/2017 Pt reported speech production changes, swallowing difficulty with decreased ability in swallow initiation and phlegm production. History Source: Patient, Medical Record Limitations to Obtaining History: No Limitations - Past Medical History ...: No - Smoking History Smoking history: Never smoked Have you smoked in the past 12 months: No - Alcohol/Substance Use Hx Alcohol Use: No History - Admission Reason For Visit: CEREBROVASCULAR ACCIDENT (CVA) - Diagnostics X-ray: Report Reviewed CT Scan: Report Reviewed MRI: Report Reviewed (small acute left frontal waggoner radiata infarct.) - General Mental Status: Alert and Oriented, Awake and Alert, Able to Follow Commands Attention: Intact Ability to Follow Directions: Excellent Head/Neck Control: WFL - Hearing Hearing: Normal Speech Evaluation - Communication Primary Language: ITALIAN Communication: Yes: Dysarthria Oral Expression Ability: Yes: Mild Impairment - Speech Production Able to Make Needs Known: Yes: WNL Intelligibility: Yes: Mildly Impaired - Speech Characteristics Voice Loudness: Normal Voice Pitch: Yes: Normal Voice Phonatory-based Quality: Yes: Normal Speech Pattern: Impaired Nasal Resonance: Normal Articulation: Yes: Imprecise Rate of Speech: Intact - Language/Auditory Comprehension Follows: Yes: 2 Stage Simple Commands - Language/Verbal Expression Able to Respond to Simple Queries: Yes: WNL Able to Communicate Wants and Needs: Yes: WNL Functional Communication Status: Yes: WNL - Memory/Perception half-way Memory: Yes: WNL Short Term Memory: Yes: WNL - Swallow Evaluation/Bedside Assessment Current Nutritional Intake: Regular, Thin Liquids Oral Secretions: Yes: WFL (Reports "phlegm in throat") Dentition: Yes: Adequate Facial Symmetry at Rest: Facial Droop Right Facial Symmetry on Retraction: Facial Droop Right Against Resistance Opening: Normal Against Resistance Closing: Normal Pucker Lips: Droops Right Smile: Droops Right Lingual Movement: Deviates Left (slight) Lingual Movement Strgth Against Opposition: Normal Lingual Movement Characteristics: Normal Laryngeal Movement: Able to Palpate, Labored,delay initiation Rate of Intake: Slow/Holding Bolus Size: Small Labial Seal: Impaired Right Chewing: WFL Oral Prep Time: WFL A-P Transit: WFL Pocketing: None Timing of Swallow: Delayed Coughing/Throat Clear: No Change in Voice: No Recommendations - Speech Evaluation, Impression/Plan Impression: Pt presents with mild dysarthria with right facial weakness. She reports needing to swallow carefully, taking small sips with overtly good tolerance. - Dysphagia Impressions/Plan Dysphagia Impressions: Mild Impairment, Risk of Aspiration, Ongoing Evaluation *Silent aspiration: cannot be R/O at bedside Dysphagia Treatment Plan: Other (Pt given oromotor exercises for self practice.) Recommendations: Modified Barium Swallow (if cough, congestion, fever) - Recommendations Diet Consistency: Regular Medication Administration: Whole with water Liquids: Thin Liquids
--- NOTE | 2018-03-08 11:31 | CON.CARD ---
Cardiology Consult (text) - Consultation Consultation Note: cc:difficulty with speech hpi: 57 f no sig pmhx here with speech problems. Found to have new cva on MRI. No cp, sob, palps, dizzy, loc, pnd, orthopnea, le edema. pmh: per hpi psh: appendectomy social: no tob fam: dad mi 60s ros: per hpi; no nvd, fever, vision changes, muscle pain, gib, hematuria, dysuria meds: Home Medications Medication Instructions Recorded NK [No Known Home Medication] 03/06/18 pe: Vital Signs Period Temp Pulse Resp BP Sys/Odell Pulse Ox Last 24 Hr 97.5 F-98.3 F 61-116 18-22 126-165/73-114 96-98 nad no jvd rrr s1s2 no mrg cta bl nl eff aaox3 no le e/c/c abd nt nd pos bs no jaundice diaphoresis pos dp pt no carotid bruits Current Medications Generic Name Dose Route Start Last Admin Trade Name Freq PRN Reason Stop Dose Admin Aspirin 81 mg 03/08/18 10:00 03/08/18 10:21 Ecotrin - PO 81 mg DAILY SANTOS Administration Atorvastatin Calcium 40 mg 03/08/18 22:00 Lipitor - PO HS SANTOS Azithromycin 250 mg 03/08/18 10:00 03/08/18 10:21 Zithromax - PO 03/10/18 10:01 250 mg DAILY SANTOS Administration Heparin Sodium (Porcine) 5,000 unit 03/08/18 06:00 03/08/18 05:26 Heparin - SQ Not Given TID [facility] Laboratory Last Values WBC 14.2 K/mm3 (4.0-10.0) H 03/08/18 05:35 RBC 4.19 M/mm3 (3.60-5.2) 03/08/18 05:35 Hgb 12.2 GM/dL (10.7-15.3) 03/08/18 05:35 Hct 36.6 % (32.4-45.2) 03/08/18 05:35 MCV 87.3 fl (80-96) 03/08/18 05:35 MCH 29.0 pg (25.7-33.7) 03/08/18 05:35 MCHC 33.2 g/dl (32.0-36.0) 03/08/18 05:35 RDW 15.5 % (11.6-15.6) 03/08/18 05:35 Plt Count 322 K/MM3 (134-434) 03/08/18 05:35 MPV 9.1 fl (7.5-11.1) 03/08/18 05:35 Neutrophils % 77.7 % (42.8-82.8) 03/08/18 05:35 Lymphocytes % 16.1 % (8-40) D 03/08/18 05:35 Monocytes % 6.1 % (3.8-10.2) 03/08/18 05:35 Eosinophils % 0.0 % (0-4.5) 03/08/18 05:35 Basophils % 0.1 % (0-2.0) 03/08/18 05:35 PT with INR 12.30 SEC (9.7-13.0) 03/07/18 20:21 INR 1.09 (0.82-1.09) 03/07/18 20:21 PTT (Actin FS) 29.6 SECONDS (26.9-34.4) 03/07/18 20:21 Sodium 141 mmol/L (136-145) 03/08/18 05:35 Potassium 3.9 mmol/L (3.5-5.1) 03/08/18 05:35 Chloride 108 mmol/L (98-107) H 03/08/18 05:35 Carbon Dioxide 26 mmol/L (21-32) 03/08/18 05:35 Anion Gap 7 (8-16) L 03/08/18 05:35 BUN 17 mg/dL (7-18) 03/08/18 05:35 Creatinine 0.7 mg/dL (0.55-1.02) 03/08/18 05:35 Creat Clearance w eGFR > 60 (>60) 03/07/18 20:21 Random Glucose 102 mg/dL (74-106) 03/08/18 05:35 Hemoglobin A1c % 6.3 % (4.8-6.0) H 03/08/18 05:35 Calcium 8.5 mg/dL (8.5-10.1) 03/08/18 05:35 Phosphorus 3.4 mg/dL (2.5-4.9) 03/08/18 05:35 Magnesium 2.3 mg/dL (1.8-2.4) 03/08/18 05:35 Total Bilirubin 0.2 mg/dL (0.2-1.0) D 03/07/18 20:21 AST 19 U/L (15-37) 03/07/18 20:21 ALT 24 U/L (12-78) 03/07/18 20:21 Alkaline Phosphatase 108 U/L (45-117) 03/07/18 20:21 Creatine Kinase 398 IU/L (26-192) H 03/07/18 20:21 Creatine Kinase Index 0.5 % (0.0-5.0) 03/07/18 20:21 CK-MB (CK-2) 2.174 ng/mL (0.5-3.6) 03/07/18 20:21 Troponin I < 0.02 ng/ml (0.00-0.05) 03/07/18 20:21 Total Protein 8.1 g/dl (6.4-8.2) 03/07/18 20:21 Albumin 3.9 g/dl (3.4-5.0) 03/07/18 20:21 Triglycerides 94 mg/dL (35-160) 03/08/18 05:35 Cholesterol 152 mg/dL (50-200) 03/08/18 05:35 Total LDL Cholesterol 107 mg/dL (5-100) H 03/08/18 05:35 HDL Cholesterol 39 mg/dL (40-60) L 03/08/18 05:35 TSH 1.24 uIU/ml (0.358-3.74) 03/08/18 05:35 tele: sr cxr: clear lungs ecg: sr, nl intervals, no ischemic changes a/p: 57 f no sig pmhx here with speech problems. cva: -seen on mri -carotids w/o stenosis -echo pending -cont tele -on asa, statin -neuro following
--- NOTE | 2018-03-08 15:40 | MSN ---
Progress Note (short form) - Note Progress Note: CHIEF COMPLAINT: difficulty talking/swallowing HISTORY OF PRESENT ILLNESS: Annalisa Valle is a 57 year old female with no significant past medical history. Patient 2 days prior to admission was seen in an urgent care clinic with similar symptoms where a rapid strep test was performed and was positive. The patient was started on azithromycin at the time. Patient on this admission presented to the ED with trouble speaking, finding words, harsh voice, trouble swallowing. Her stated that this a change from her baseline voice. Patient had imaging performed and found a L waggoner radiata ischemic stroke and punctuate focus in the R hippocampal formation that may a manifestation of transient flobal amnesia. Patient was admitted and treated for ischemic stroke. Patient was seen and examined at the bedside. Today patient states that her voice has improved slightly but still notices slurring of her speech as well as some difficulty with swallowing liquids. Patient denies headaches, dizziness, lightheadedness, focal weakness, numbness/tingling, blurry vision, double vision , visual deficits, cp, sob, abd pain, n/v/c/d, extremity pain, back pain. PAST MEDICAL HISTORY: no significant past medical history PAST SURGICAL HISTORY: x3, appendectomy Social History: Smoking: denies Alcohol: denies Drugs: denies REQUESTING PROVIDER: CONSULT REQUEST: We have been asked to medically evaluate this patient for ( specify). REVIEW OF SYSTEMS: CONSTITUTIONAL: Absent: fever, chills, diaphoresis, generalized weakness, malaise, loss of appetite, weight change HEENT: Absent: rhinorrhea, nasal congestion, throat pain, throat swelling, difficulty swallowing, mouth swelling, ear pain, eye pain, visual changes CARDIOVASCULAR: Absent: chest pain, syncope, palpitations, irregular heart rate, lightheadedness , peripheral edema RESPIRATORY: Absent: cough, shortness of breath, dyspnea with exertion, orthopnea, wheezing, stridor, hemoptysis GASTROINTESTINAL: Absent: abdominal pain, abdominal distension, nausea, vomiting, diarrhea, constipation, melena, hematochezia GENITOURINARY: Absent: dysuria, frequency, urgency, hesitancy, hematuria, flank pain, genital pain MUSCULOSKELETAL: Absent: myalgia, arthralgia, joint swelling, back pain, neck pain SKIN: Absent: rash, itching, pallor HEMATOLOGIC/IMMUNOLOGIC: Absent: easy bleeding, easy bruising, lymphadenopathy, frequent infections ENDOCRINE: Absent: unexplained weight gain, unexplained weight loss, heat intolerance, cold intolerance NEUROLOGIC: dysphagia, dysarthria Absent: headache, focal weakness or paresthesias, dizziness, unsteady gait, seizure, mental status changes, bladder or bowel incontinence PSYCHIATRIC: Absent: anxiety, depression, suicidal or homicidal ideation, hallucinations. PHYSICAL EXAMINATION GENERAL: Awake, alert, and fully oriented, in no acute distress. HEAD: Normal with no signs of trauma. EYES: Pupils equal, round and reactive to light, extraocular movements intact, sclera anicteric, conjunctiva clear. No lid lag. EARS, NOSE, THROAT: Ears normal, nares patent, oropharynx clear without exudates. Moist mucous membranes. NECK: Normal range of motion, supple without lymphadenopathy, JVD, or masses. LUNGS: Breath sounds equal, clear to auscultation bilaterally. No wheezes, and no crackles. No accessory muscle use. HEART: Regular rate and rhythm, normal S1 and S2 without murmur, rub or gallop. ABDOMEN: Soft, nontender, not distended, normoactive bowel sounds, no guarding, no rebound, no masses. No hepatomegaly or splenomegaly. MUSCULOSKELETAL: Normal range of motion at all joints. No bony deformities or tenderness. No CVA tenderness. UPPER EXTREMITIES: 2+ pulses, warm, well-perfused. No cyanosis. No clubbing. Cap refill <2 seconds. No peripheral edema. LOWER EXTREMITIES: 2+ pulses, warm, well-perfused. No calf tenderness. No peripheral edema. NEUROLOGICAL: Visual leonardo intact, extraocular movements intact, sensation on face intact to gross touch and pinprick, facial droop on R, hearing intact to finger rub, mild palate sag on right, gag reflex intact, SCM and trapezius muscle strength 5/5, tongue with mild R deviation. Sensation intact to gross touch and pinprick in upper and lower extremities bilaterally. 5/5 muscle strength in upper and lower extremities bilaterally. 2/4 patellar, calcaneal, biceps, triceps reflexes. Proprioception intact. No dysmetria on finger to nose and heel to agarwal. PSYCHIATRIC: Cooperative. Good eye contact. Appropriate mood and affect. SKIN: Warm, dry, normal turgor, no rashes or lesions noted. Last Vital Signs Temp Pulse Resp BP Pulse Ox 97.5 F L 65 160/94 96 03/08/18 04:00 03/08/18 10:00 03/08/18 10:00 03/08/18 10:00 03/08/18 09:00 Allergies Allergy/AdvReac Type Severity Reaction Status Date / Time Penicillins Allergy Difficulty Verified 03/07/18 16:56 Breathing Sulfa (Sulfonamide Allergy Rash Verified 03/07/18 16:56 Antibiotics) CBC, BMP 03/08/18 05:35 03/08/18 05:35 CMP Sodium 141 mmol/L (136-145) 03/08/18 05:35 Potassium 3.9 mmol/L (3.5-5.1) 03/08/18 05:35 Chloride 108 mmol/L (98-107) H 03/08/18 05:35 Carbon Dioxide 26 mmol/L (21-32) 03/08/18 05:35 Anion Gap 7 (8-16) L 03/08/18 05:35 BUN 17 mg/dL (7-18) 03/08/18 05:35 Creatinine 0.7 mg/dL (0.55-1.02) 03/08/18 05:35 Creat Clearance w eGFR > 60 (>60) 03/07/18 20:21 Random Glucose 102 mg/dL (74-106) 03/08/18 05:35 Hemoglobin A1c % 6.3 % (4.8-6.0) H 03/08/18 05:35 Calcium 8.5 mg/dL (8.5-10.1) 03/08/18 05:35 Phosphorus 3.4 mg/dL (2.5-4.9) 03/08/18 05:35 Magnesium 2.3 mg/dL (1.8-2.4) 03/08/18 05:35 Total Bilirubin 0.2 mg/dL (0.2-1.0) D 03/07/18 20:21 AST 19 U/L (15-37) 03/07/18 20:21 ALT 24 U/L (12-78) 03/07/18 20:21 Alkaline Phosphatase 108 U/L (45-117) 03/07/18 20:21 Creatine Kinase 398 IU/L (26-192) H 03/07/18 20:21 Creatine Kinase Index 0.5 % (0.0-5.0) 03/07/18 20:21 CK-MB (CK-2) 2.174 ng/mL (0.5-3.6) 03/07/18 20:21 Troponin I < 0.02 ng/ml (0.00-0.05) 03/07/18 20:21 Total Protein 8.1 g/dl (6.4-8.2) 03/07/18 20:21 Albumin 3.9 g/dl (3.4-5.0) 03/07/18 20:21 Triglycerides 94 mg/dL (35-160) 03/08/18 05:35 Cholesterol 152 mg/dL (50-200) 03/08/18 05:35 Total LDL Cholesterol 107 mg/dL (5-100) H 03/08/18 05:35 HDL Cholesterol 39 mg/dL (40-60) L 03/08/18 05:35 TSH 1.24 uIU/ml (0.358-3.74) 03/08/18 05:35 Abnormal Lab Results 03/07/18 03/07/18 03/08/18 20:21 20:21 05:35 WBC 15.5 H D 14.2 H Neutrophils % 86.4 H D Monocytes % 3.5 L Chloride 108 H Anion Gap 7 L Random Glucose 119 H Hemoglobin A1c % Creatine Kinase 398 H Total LDL Cholesterol 128 H HDL Cholesterol 03/08/18 03/08/18 05:35 05:35 WBC Neutrophils % Monocytes % Chloride 108 H Anion Gap 7 L Random Glucose Hemoglobin A1c % 6.3 H Creatine Kinase Total LDL Cholesterol 107 H HDL Cholesterol 39 L Active Medications Generic Name Dose Route Start Last Admin Trade Name Rovertoq PRN Reason Stop Dose Admin Aspirin 81 mg 03/08/18 10:00 03/08/18 10:21 Ecotrin - PO 81 mg DAILY SANTOS Administration Atorvastatin Calcium 40 mg 03/08/18 22:00 Lipitor - PO HS SANTOS Azithromycin 250 mg 03/08/18 10:00 03/08/18 10:21 Zithromax - PO 03/10/18 10:01 250 mg DAILY SANTOS Administration Heparin Sodium (Porcine) 5,000 unit 03/08/18 06:00 03/08/18 13:22 Heparin - SQ Not Given TID SANTOS IMAGING: HEAD CT: elliptical in shape hypodensity in left waggoner radiata CHEST X-RAY: no acute pathology BRAIN MRI: acute infarct in left frontal waggoner radiata, punctuate focus in R hippocampal formation CT OF SOFT TISSUE NECK: no abscess noted, asymettric positioning of R tongue base. 6mm R upper lobe pulmonary nodule ECHOCARDIOGRAM: LVEF within normal limits, mild mitral regurgitation, tricuspid regurgitation, no pericardial effusions ASSESSMENT/PLAN: Patient is a 57 y/o female with no significant past medical history who presented with dysphagia and dysarthria s/p L waggoner radiata ischemic stroke. L waggoner radiata ischemia stroke - neurology consulted, Dr. Arteaga, recs appreciated - imaging as above - neuro checks - aspirin 81mg - Lipitor 40mg - Physical therapy evaluation - Speech and swallow evaluation noted mild impairment. recommended regular diet , thin liquids, Oromotor exercises - cardiology consulted for possible embolic origin of stroke, recs appreciated - telemetry - Echo as above - blood cultures for possible infectious source, CT of soft tissues negative Strep Pharyngitis - afebrile - leukocytosis 14.2 decreased from admission 15.5 - continue azithromycin from outpatient treatment, day 3 of abx F/E/N - no fluids currently needed - electrolytes within normal limits - replete as necessary - cholesterol controlled diet DVT PPx - heparin 5000 units subq tid - patient currently refusing Disposition - on telemetry
--- NOTE | 2018-03-08 17:31 | PN ---
Physical Exam: SUBJECTIVE: Patient seen and examined at bedside. Pt feels she still has difficulty forming words and spills water from the right side of her mouth when sipping from a cup. No other complaints. Denies change in vision, nausea, vomiting, diarrhea. OBJECTIVE: Vital Signs Period Temp Pulse Resp BP Sys/Odell Pulse Ox Last 24 Hr 97.5 F-98.4 F 61-77 18-20 133-165/73-94 96-98 GENERAL: The patient is awake, alert, and fully oriented, in no acute distress. HEAD: Normal with no signs of trauma. EYES: PERRL, extraocular movements intact, sclera anicteric, conjunctiva clear. No ptosis. ENT: oropharynx clear without exudates, moist mucous membranes. NECK: Trachea midline, full range of motion, supple. LUNGS: Breath sounds equal, clear to auscultation bilaterally, no wheezes, no crackles, no accessory muscle use. HEART: Regular rate and rhythm, S1, S2 without murmur, rub or gallop. ABDOMEN: Soft, nontender, nondistended, normoactive bowel sounds, no guarding, no rebound, no hepatosplenomegaly, no masses. EXTREMITIES: 2+ pulses, warm, well-perfused, no edema. NEUROLOGICAL: R facial droop. Dysarthric speech, gait not observed. Strength 5/ 5 throughout. Reflexes intact throughout. Sensation intact. PSYCH: Normal mood, normal affect. SKIN: Warm, dry, normal turgor, no rashes or lesions noted Laboratory Results - last 24 hr 03/07/18 03/07/18 03/07/18 20:21 20:21 20:21 WBC 15.5 H D RBC 4.66 Hgb 13.5 Hct 40.4 MCV 86.6 MCH 28.9 MCHC 33.4 RDW 15.6 Plt Count 383 MPV 9.1 Neutrophils % 86.4 H D Lymphocytes % 9.9 D Monocytes % 3.5 L Eosinophils % 0.0 D Basophils % 0.2 PT with INR 12.30 INR 1.09 PTT (Actin FS) 29.6 Sodium 140 Potassium 4.6 Chloride 108 H Carbon Dioxide 25 Anion Gap 7 L BUN 16 Creatinine 0.8 Creat Clearance w eGFR > 60 Random Glucose 119 H Hemoglobin A1c % Calcium 8.9 Phosphorus Magnesium Total Bilirubin 0.2 D AST 19 ALT 24 Alkaline Phosphatase 108 Creatine Kinase 398 H Creatine Kinase Index 0.5 CK-MB (CK-2) 2.174 Troponin I < 0.02 Total Protein 8.1 Albumin 3.9 Triglycerides 65 Cholesterol 183 Total LDL Cholesterol 128 H HDL Cholesterol 52 TSH 03/08/18 03/08/18 03/08/18 05:35 05:35 05:35 WBC 14.2 H RBC 4.19 Hgb 12.2 Hct 36.6 MCV 87.3 MCH 29.0 MCHC 33.2 RDW 15.5 Plt Count 322 MPV 9.1 Neutrophils % 77.7 Lymphocytes % 16.1 D Monocytes % 6.1 Eosinophils % 0.0 Basophils % 0.1 PT with INR INR PTT (Actin FS) Sodium 141 Potassium 3.9 Chloride 108 H Carbon Dioxide 26 Anion Gap 7 L BUN 17 Creatinine 0.7 Creat Clearance w eGFR Random Glucose 102 Hemoglobin A1c % Calcium 8.5 Phosphorus 3.4 Cancelled Magnesium 2.3 Cancelled Total Bilirubin AST ALT Alkaline Phosphatase Creatine Kinase Creatine Kinase Index CK-MB (CK-2) Troponin I Total Protein Albumin Triglycerides 94 Cancelled Cholesterol 152 Cancelled Total LDL Cholesterol 107 H Cancelled HDL Cholesterol 39 L Cancelled TSH 1.24 Cancelled 03/08/18 05:35 WBC RBC Hgb Hct MCV MCH MCHC RDW Plt Count MPV Neutrophils % Lymphocytes % Monocytes % Eosinophils % Basophils % PT with INR INR PTT (Actin FS) Sodium Potassium Chloride Carbon Dioxide Anion Gap BUN Creatinine Creat Clearance w eGFR Random Glucose Hemoglobin A1c % 6.3 H Calcium Phosphorus Magnesium Total Bilirubin AST ALT Alkaline Phosphatase Creatine Kinase Creatine Kinase Index CK-MB (CK-2) Troponin I Total Protein Albumin Triglycerides Cholesterol Total LDL Cholesterol HDL Cholesterol TSH Active Medications Generic Name Dose Route Start Last Admin Trade Name Freq PRN Reason Stop Dose Admin Aspirin 81 mg 03/08/18 10:00 03/08/18 10:21 Ecotrin - PO 81 mg DAILY SANTOS Administration Atorvastatin Calcium 40 mg 03/08/18 22:00 Lipitor - PO HS SANTOS Azithromycin 250 mg 03/08/18 10:00 03/08/18 10:21 Zithromax - PO 03/10/18 10:01 250 mg DAILY SANTOS Administration Heparin Sodium (Porcine) 5,000 unit 03/08/18 06:00 03/08/18 13:22 Heparin - SQ Not Given TID [facility] ASSESSMENT/PLAN: 57 yr woman with recent hx of paraspinal cyst abscess drainage, being treated for strep throat found to have CVA on MRI. Pt admitted for evaluation and treatment of stroke. #CVA -not a candidate for TPA -ASA -Lipitor -MRI significant for L frontal waggoner radiata CVA. Punctate lesion in R hippocampus, ? septic embolic -Neuro consult (Dr. Arteaga) appreciated -Carotid dopplers completed and without HD significant stenosis. -soft tissue neck CT neg for abscess. Tongue base asymmetric -PT -Speech pathology -Cardio consult (Dr. Huerta) appreciated #Strep Pharyngitis - afebrile - No erythema noted in pharynx on exam - leukocytosis 14.2 decreased from admission 15.5 - continue azithromycin from outpatient treatment, day 3 of abx #FEN -not on fluids -lytes wnl -low cholesterol diet #PPx -HSQ -SCDs #Dispo -admitted to tele for CVA workup Cas Shipley MD PGY-1 IM Visit type - Emergency Visit Emergency Visit: No - New Patient This patient is new to me today: No - Critical Care Critical Care patient: No
[2018-03-08] MEDS: ATORVASTATIN CA 40 MG TABLET (FP) PO SCH (22:19)
[2018-03-09] MEDS: HEPARIN NA (PORCINE) 5,000 UNITS/ML 1ML VIAL SQ SCH ×3 (06:55→21:05)
[2018-03-09 07:40] LABS: BASO % 0.5 % (0-2.0); EOS % 1.7 % (0-4.5); HEMATOCRIT 37.8 % (32.4-45.2); HEMOGLOBIN 12.4 GM/dL (10.7-15.3); LYMPH % 37.8 % (8-40); MCH 28.9 pg (25.7-33.7); MCHC 32.9 g/dl (32.0-36.0); MEAN CELL VOLUME 87.7 fl (80-96); MEAN PLT VOLUME 9.1 fl (7.5-11.1); MONO % 6.4 % (3.8-10.2); NEUT % 53.6 % (42.8-82.8); PLATELET COUNT 319 K/MM3 (134-434); RBC 4.31 M/mm3 (3.60-5.2); WHITE BLOOD COUNT 9.2 K/mm3 (4.0-10.0)
[2018-03-09 08:26] LABS: CHLORIDE 106 mmol/L (98-107); POTASSIUM 4.3 mmol/L (3.5-5.1); SODIUM 141 mmol/L (136-145)
--- NOTE | 2018-03-09 08:27 | PN ---
Progress Note, Physician Chief Complaint: cva History of Present Illness: pt has PMD with regular f/u in [facility] (Dr. Olmos). last seen 12/16. she denies any hx HPL, DM, or HTN or rx treatment for any of these conditions. bp was hi transiently during recent viral illness. no cp, sob, palpitations, syncope (brief fluttering in throat at home the day of the stroke) - Current Medication List Current Medications: Active Medications Aspirin (Ecotrin -) 81 mg PO DAILY [facility] Last Admin: 03/08/18 10:21 Dose: 81 mg Atorvastatin Calcium (Lipitor -) 40 mg PO HS [facility] Last Admin: 03/08/18 22:19 Dose: 40 mg Azithromycin (Zithromax -) 250 mg PO DAILY [facility] Stop: 03/10/18 10:01 Last Admin: 03/08/18 10:21 Dose: 250 mg Heparin Sodium (Porcine) (Heparin -) 5,000 unit SQ TID [facility] Last Admin: 03/09/18 06:55 Dose: Not Given - Objective Vital Signs: Vital Signs Temperature 97.7 F 03/09/18 06:00 Pulse Rate 58 L 03/09/18 06:00 Respiratory Rate 16 03/09/18 06:00 Blood Pressure 123/69 03/09/18 06:00 O2 Sat by Pulse Oximetry (%) 95 03/08/18 21:00 Constitutional: Yes: No Distress, Calm, Obese Cardiovascular: Yes: Regular Rate and Rhythm, S1, S2, Varicosities. No: Gallop , Murmur, Rub Respiratory: Yes: Regular, CTA Bilaterally. No: Accessory Muscle Use, Rales, Wheezes Extremities: No: Cold Edema: No Neurological: Yes: Alert, Oriented Psychiatric: No: Agitated Labs: CBC, BMP 03/09/18 07:00 INR, PTT INR 1.09 (0.82-1.09) 03/07/18 20:21 Assessment/Plan ecg: sr, nl intervals, no ischemic changes Echo 03/15: nl LV, nl RV, nl valves tele: NSR a/p: 57 f no sig pmhx here with speech problems sec to acute CVA. cva: -MRI with evidence of acute L brain ischemic infarct -carotids w/o stenosis, echo unrevealing -tele normal thus far -pt history today clearly rules out signif h/o atherosclerotic RF burden. she is pre-diabetic on labs here. she admits to unusually intense ("very severe") mental stress recently related to 's acute illness and her work. this combination of factors may be the culprit for her stroke. however i advised her that i would recommend she have RENETTA, which can either be done sunday afternoon before she leaves the hospital, of if she is otherwise ready for discharge sooner, could be safely done as outpt next week since the results would not be expected to immediately change tx approach. -d/w'd pt and , as well as hospitalist (irene) -will also plan outpt 30 day monitor, though notably, if she has PAF her CHADS- VASC score is 0 (except for female gender) and would be highly unlikely for afib to cause a stroke in her (risk is close to 0 in pts with her profile, in multiple studies of CHADS-VASC score) -on asa, statin. BP at target (w/o meds) -neuro input appreciated
[2018-03-09] MEDS ORDERED: DOCUSATE SODIUM 100 MG CAPSULE (FP) PO ONE (08:45)
[2018-03-09 08:46] LABS: ALBUMIN 3.4 g/dl (3.4-5.0); ALK PHOS 92 U/L (45-117); ANION GAP 7 (8-16); BILIRUBIN,TOTAL 0.4 mg/dL (0.2-1.0); BLOOD UREA NITROGEN 19 mg/dL (7-18); CALCIUM 8.3 mg/dL (8.5-10.1); CO2 28 mmol/L (21-32); CREATININE 0.8 mg/dL (0.55-1.02); GLUCOSE,RANDOM 91 mg/dL (74-106); SGOT/AST 15 U/L (15-37); SGPT/ALT 21 U/L (12-78); TOT PROT 6.9 g/dl (6.4-8.2)
--- NOTE | 2018-03-09 08:46 | PN ---
Physical Exam: SUBJECTIVE: Patient seen and examined at bedside. Pt complains of a sharp pain in her right breast, which she attributes to gas. She states she has not had a BM in 2 days and has had lots of belching and flatulence, which alleviated the discomfort somewhat. She also mentions a rash on her left arm which she got after her MRI. She states the contrast dye leaked onto her skin and it became red. Rash is not painful. No other complaints. OBJECTIVE: Vital Signs Period Temp Pulse Resp BP Sys/Odell Pulse Ox Last 24 Hr 97.2 F-98.4 F 58-77 16-20 120-160/67-94 95-96 GENERAL: The patient is awake, alert, and fully oriented, in no acute distress. HEAD: Normal with no signs of trauma. EYES: PERRL, extraocular movements intact, sclera anicteric, conjunctiva clear. No ptosis. ENT: oropharynx clear without exudates, moist mucous membranes. NECK: Trachea midline, full range of motion, supple. LUNGS: Breath sounds equal, clear to auscultation bilaterally, no wheezes, no crackles, no accessory muscle use. HEART: Regular rate and rhythm, S1, S2 without murmur, rub or gallop. ABDOMEN: Soft, nontender, nondistended, normoactive bowel sounds, no guarding, no rebound, no hepatosplenomegaly, no masses. EXTREMITIES: 2+ pulses, warm, well-perfused, no edema. NEUROLOGICAL: exam improved significantly from yesterday. speech is more clear and flows more fluidly. R facial droop. Dysarthric speech, gait not observed. Strength 5/5 throughout. Reflexes intact throughout. Sensation intact. PSYCH: Normal mood, normal affect. SKIN: Warm, dry, normal turgor, no rashes or lesions noted Laboratory Results - last 24 hr 03/08/18 03/08/18 03/08/18 05:35 05:35 05:35 WBC RBC Hgb Hct MCV MCH MCHC RDW Plt Count MPV Neutrophils % Lymphocytes % Monocytes % Eosinophils % Basophils % Sodium 141 Potassium 3.9 Chloride 108 H Carbon Dioxide 26 Anion Gap 7 L BUN 17 Creatinine 0.7 Random Glucose 102 Hemoglobin A1c % 6.3 H Calcium 8.5 Phosphorus 3.4 Cancelled Magnesium 2.3 Cancelled Triglycerides 94 Cancelled Cholesterol 152 Cancelled Total LDL Cholesterol 107 H Cancelled HDL Cholesterol 39 L Cancelled TSH 1.24 Cancelled 03/09/18 07:00 WBC 9.2 D RBC 4.31 Hgb 12.4 Hct 37.8 MCV 87.7 MCH 28.9 MCHC 32.9 RDW 16.0 H Plt Count 319 MPV 9.1 Neutrophils % 53.6 D Lymphocytes % 37.8 D Monocytes % 6.4 Eosinophils % 1.7 D Basophils % 0.5 D Sodium Potassium Chloride Carbon Dioxide Anion Gap BUN Creatinine Random Glucose Hemoglobin A1c % Calcium Phosphorus Magnesium Triglycerides Cholesterol Total LDL Cholesterol HDL Cholesterol TSH Active Medications Generic Name Dose Route Start Last Admin Trade Name Rovertoq PRN Reason Stop Dose Admin Aspirin 81 mg 03/08/18 10:00 03/08/18 10:21 Ecotrin - PO 81 mg DAILY [facility] Administration Atorvastatin Calcium 40 mg 03/08/18 22:00 03/08/18 22:19 Lipitor - PO 40 mg HS [facility] Administration Azithromycin 250 mg 03/08/18 10:00 03/08/18 10:21 Zithromax - PO 03/10/18 10:01 250 mg DAILY [facility] Administration Heparin Sodium (Porcine) 5,000 unit 03/08/18 06:00 03/09/18 06:55 Heparin - SQ Not Given TID S[facility]OS ASSESSMENT/PLAN: 57 yr woman with recent hx of paraspinal cyst abscess drainage, being treated for strep throat found to have CVA on MRI. Pt admitted for evaluation and treatment of stroke. #CVA -not a candidate for TPA -ASA -Lipitor -MRI significant for L frontal waggoner radiata CVA. Punctate lesion in R hippocampus, ? septic embolic -Neuro consult (Dr. Arteaga) appreciated -Carotid dopplers completed and without HD significant stenosis. -soft tissue neck CT neg for abscess: Tongue base asymmetric -Echo: unremarkable -PT -Speech pathology -Cardio consult (Dr. Huerta) appreciated #Strep Pharyngitis - afebrile - No erythema noted in pharynx on exam - leukocytosis resolved. - continue azithromycin from outpatient treatment, day 3 of abx #Constipation -colace #FEN -not on fluids -lytes wnl -low cholesterol diet #PPx: pt is refusing both HSQ and SCDs -HSQ -SCDs #Dispo -admitted to tele for CVA workup Cas Shipley MD PGY-1 IM Visit type - Emergency Visit Emergency Visit: No - New Patient This patient is new to me today: No - Critical Care Critical Care patient: No - Discharge Referral Referred to [facility] No
--- NOTE | 2018-03-09 09:05 | PN ---
Teaching Attending Note Name of Resident: Cas Shipely ATTENDING PHYSICIAN STATEMENT I saw and evaluated the patient. I reviewed the resident's note and discussed the case with the resident. I agree with the resident's findings and plan as documented with exceptions below. SUBJECTIVE: Patient seen and examined. feels right side tongue swollen, still with dysarthria, No new weakness or sensory changes OBJECTIVE: Vital Signs Period Temp Pulse Resp BP Sys/Odell Pulse Ox Last 24 Hr 97.2 F-98.4 F 58-77 16-20 120-160/67-94 95 Intake & Output 03/06/18 03/07/18 03/08/18 03/09/18 23:59 23:59 23:59 23:59 Intake Total 570 120 Balance 570 120 Weight 195 lb 218 lb 9.6 oz General: sitting in chair, no acute distress Neuro: AAOX3, right facial droop unchanged, mild tongue deviation to left , novisible uvular deviation but limited exam given strong gag, facial sensation intact bilaterally, dysarthria, otherwise unchanged exam Home Medication List Medication Instructions Recorded Confirmed Type NK [No Known Home Medication] 03/06/18 03/07/18 History Active Medications Generic Name Dose Route Start Last Admin Trade Name Rovertoq PRN Reason Stop Dose Admin Aspirin 81 mg 03/08/18 10:00 03/08/18 10:21 Ecotrin - PO 81 mg DAILY [facility] Administration Atorvastatin Calcium 40 mg 03/08/18 22:00 03/08/18 22:19 Lipitor - PO 40 mg HS [facility]OS Administration Azithromycin 250 mg 03/08/18 10:00 03/08/18 10:21 Zithromax - PO 03/10/18 10:01 250 mg DAILY [facility] Administration Heparin Sodium (Porcine) 5,000 unit 03/08/18 06:00 03/09/18 06:55 Heparin - SQ Not Given TID [facility] Laboratory Results - last 24 hr 03/08/18 03/08/18 03/09/18 05:35 05:35 07:00 WBC 9.2 D RBC 4.31 Hgb 12.4 Hct 37.8 MCV 87.7 MCH 28.9 MCHC 32.9 RDW 16.0 H Plt Count 319 MPV 9.1 Neutrophils % 53.6 D Lymphocytes % 37.8 D Monocytes % 6.4 Eosinophils % 1.7 D Basophils % 0.5 D Sodium Potassium Chloride Carbon Dioxide Anion Gap BUN Creatinine Creat Clearance w eGFR Random Glucose Hemoglobin A1c % 6.3 H Calcium Phosphorus 3.4 Magnesium 2.3 Total Bilirubin AST ALT Alkaline Phosphatase Total Protein Albumin Triglycerides 94 Cholesterol 152 Total LDL Cholesterol 107 H HDL Cholesterol 39 L TSH 1.24 05/18 07:00 WBC RBC Hgb Hct MCV MCH MCHC RDW Plt Count MPV Neutrophils % Lymphocytes % Monocytes % Eosinophils % Basophils % Sodium 141 Potassium 4.3 Chloride 106 Carbon Dioxide 28 Anion Gap 7 L BUN 19 H Creatinine 0.8 Creat Clearance w eGFR > 60 Random Glucose 91 Hemoglobin A1c % Calcium 8.3 L Phosphorus Magnesium Total Bilirubin 0.4 D AST 15 ALT 21 Alkaline Phosphatase 92 Total Protein 6.9 Albumin 3.4 Triglycerides Cholesterol Total LDL Cholesterol HDL Cholesterol TSH MRI brain/Carotid doppler/2D echo results reviewed ASSESSMENT AND PLAN: 57 yof with sore throat/"hot potato" voice, recently diagnosed Strep throat outpatient comes with persistent speech changes, found with Acute left waggoner radiata and ?hippocampal CVA. 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 Neuro checks. MRI brain noted. No events on telemetry. Cardiology input/2D echo results noted. Blood cultures neg so far. Azithromycin [address] neck neg for collection or concerns. lipitor 40 mg hs. Continue ASA. speech/swallow eval, will need outpatient speech therapy. PT eval noted, home with assist Dispo plan for home d/c in 24 hours if no concerns. Plan discussed with patient in detail, all questions answered.
[2018-03-09] MEDS: AZITHROMYCIN 250 MG TABLET PO SCH (09:29)
[2018-03-09] MEDS: ASPIRIN COATED 81 MG TABLET.EC PO SCH (09:29)
--- NOTE | 2018-03-09 12:08 | PN ---
Progress Note (short form) - Note Progress Note: Neurology HISTORY OF PRESENT ILLNESS: 57 yr old woman with no significant PMhx presented to ED one day before admission for difficulty swallowing and talking for 1 day. She had been seen at urgent care and dx'd with strep throat (rapid bedside at urgent care was positive). She was started on Azithromycin 250mg po 1 tablet which she took one dose as well as second dose. She woke up she notes a change in her voice and trouble swallowing. As per her she was having trouble putting words together and the tone of her voice is harsher now than her usual. felt that speech was going in and out, this is still not her baseline for speech pattern and voice. MRI completed, Infarct noted in L frontal waggoner radiata but no extremity weakness. Carotid dopplers completed and without HD significant stenosis. Echo reviewed and normal LV function. All were discussed today. Discussed taking daily ASA 81mg again. CT of neck also reviewed and negative. Reports speech is better, planned for modified barium swallow on sunday, per primary team. Active Medications Aspirin (Ecotrin -) [address] [facility] Last Admin: 03/09/18 09:29 Dose: 81 mg Atorvastatin Calcium (Lipitor -) [address] [facility] Last Admin: 03/08/18 22:19 Dose: 40 mg Azithromycin (Zithromax -) [address] [facility] Stop: 03/10/18 10:01 Last Admin: 03/09/18 09:29 Dose: 250 mg Heparin Sodium (Porcine) (Heparin -) 5,[address] [facility] Last Admin: 03/09/18 06:55 Dose: Not Given PHYSICAL EXAMINATION Vital Signs Period Temp Pulse Resp BP Sys/Odell Pulse Ox Last 24 Hr 97.2 F-98.4 F 58-77 16-20 120-147/67-76 95-98 GENERAL: Awake, alert, and fully oriented, in no acute distress. HEAD: Normal with no signs of trauma. EYES: Pupils equal, round and reactive to light, extraocular movements intact, sclera anicteric, conjunctiva clear. No lid lag. EARS, NOSE, THROAT: oropharynx clear with erythema, no exudates, no tonsilar enlargement, Moist mucous membranes. NECK: Normal range of motion, supple without lymphadenopathy, JVD, or masses. LUNGS: Breath sounds equal, clear to auscultation bilaterally. No wheezes, and no crackles. No accessory muscle use. HEART: Regular rate and rhythm, normal S1 and S2 without murmur, rub or gallop. ABDOMEN: obese, Soft, nontender, not distended, normoactive bowel sounds, no guarding, no rebound, no masses. MUSCULOSKELETAL: Normal range of motion at all joints. No bony deformities or tenderness. No CVA tenderness. well-healed scar in upper thoracic spine. no paraspinal tenderness UPPER EXTREMITIES: 2+ radial pulses, warm, well-perfused. No cyanosis. No clubbing. No peripheral edema. LOWER EXTREMITIES: 2+ DP pulses, warm, well-perfused. No calf tenderness. No peripheral edema. 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 uvula and tongue midline PSYCHIATRIC: Cooperative. Good eye contact. Appropriate mood and affect. SKIN: Warm, dry, normal turgor, no rashes or lesions noted, normal capillary refill. CBCD WBC 9.2 K/mm3 (4.0-10.0) D 03/09/18 07:00 RBC 4.31 M/mm3 (3.60-5.2) 03/09/18 07:00 Hgb 12.4 GM/dL (10.7-15.3) 03/09/18 07:00 Hct 37.8 % (32.4-45.2) 03/09/18 07:00 MCV 87.7 fl (80-96) 03/09/18 07:00 MCHC 32.9 g/dl (32.0-36.0) 03/09/18 07:00 RDW 16.0 % (11.6-15.6) H 03/09/18 07:00 Plt Count 319 K/MM3 (134-434) 03/09/18 07:00 MPV 9.1 fl (7.5-11.1) 03/09/18 07:00 CMP Sodium 141 mmol/L (136-145) 03/09/18 07:00 Potassium 4.3 mmol/L (3.5-5.1) 03/09/18 07:00 Chloride 106 mmol/L (98-107) 03/09/18 07:00 Carbon Dioxide 28 mmol/L (21-32) 03/09/18 07:00 Anion Gap 7 (8-16) L 03/09/18 07:00 BUN 19 mg/dL (7-18) H 03/09/18 07:00 Creatinine 0.8 mg/dL (0.55-1.02) 03/09/18 07:00 Creat Clearance w eGFR > 60 (>60) 03/09/18 07:00 Random Glucose 91 mg/dL (74-106) 03/09/18 07:00 Calcium 8.3 mg/dL (8.5-10.1) L 03/09/18 07:00 Total Bilirubin 0.4 mg/dL (0.2-1.0) D 03/09/18 07:00 AST 15 U/L (15-37) 03/09/18 07:00 ALT 21 U/L (12-78) 03/09/18 07:00 Alkaline Phosphatase 92 U/L (45-117) 03/09/18 07:00 Total Protein 6.9 g/dl (6.4-8.2) 03/09/18 07:00 Albumin 3.4 g/dl (3.4-5.0) 03/09/18 07:00 CARDIAC ENZYMES Creatine Kinase 398 IU/L (26-192) H 03/07/18 20:21 Troponin I < 0.02 ng/ml (0.00-0.05) 03/07/18 20:21 MRI brain reviewed Echo reviewed Carotid Doppler reviewed ASSESSMENT/PLAN: 57 yr old woman with no significant PMhx presented to ED one day before admission for difficulty swallowing and talking for 1 day. She completed MRI brain which I reviewed and discussed in detail. Infarct noted in L frontal waggoner radiata but no extremity weakness. Carotid dopplers completed and without HD significant stenosis Echo reviewed, normal LV function Discussed taking daily ASA 81mg. Continue Statin for hyperlipidemia planned for modified barium swallow Advised speaking as much as possible Facial exercises at bedside reviewed CT of neck also reviewed and negative. Telemetry monitoring No longer permissive HTN, goal range <130/90 DVT ppx Discussed with primary team
[2018-03-09] MEDS: ATORVASTATIN CA 40 MG TABLET (FP) PO SCH (21:05)
[2018-03-10] MEDS: HEPARIN NA (PORCINE) 5,000 UNITS/ML 1ML VIAL SQ SCH ×3 (05:35→21:12)
--- NOTE | 2018-03-10 09:18 | PN ---
Progress Note, Physician Chief Complaint: CVA History of Present Illness: feels well. thinks her speech is gradually improving. no cp, sob, palpit - Current Medication List Current Medications: Active Medications Aspirin (Ecotrin -) 81 mg PO DAILY [facility] Last Admin: 03/09/18 09:29 Dose: 81 mg Atorvastatin Calcium (Lipitor -) 40 mg PO HS [facility] Last Admin: 03/09/18 21:05 Dose: 40 mg Azithromycin (Zithromax -) 250 mg PO DAILY [facility] Stop: 03/10/18 10:01 Last Admin: 03/09/18 09:29 Dose: 250 mg Heparin Sodium (Porcine) (Heparin -) 5,000 unit SQ TID [facility] Last Admin: 03/10/18 05:35 Dose: Not Given - Objective Vital Signs: Vital Signs Temperature 98.0 F 03/10/18 06:00 Pulse Rate 69 03/10/18 06:00 Respiratory Rate 20 03/10/18 06:00 Blood Pressure 105/61 03/10/18 06:00 O2 Sat by Pulse Oximetry (%) 98 03/09/18 21:00 Constitutional: Yes: Well Nourished, No Distress, Calm Cardiovascular: Yes: Regular Rate and Rhythm, S1, S2. No: Gallop, Murmur Respiratory: Yes: Regular, CTA Bilaterally. No: Accessory Muscle Use, Rales, Wheezes Extremities: No: Cold Edema: No Neurological: Yes: Alert, Oriented Psychiatric: No: Agitated Labs: CBC, BMP 03/09/18 07:00 03/09/18 07:00 INR, PTT INR 1.09 (0.82-1.09) 03/07/18 20:21 Assessment/Plan ecg: sr, nl intervals, no ischemic changes Echo 03/15: nl LV, nl RV, nl valves tele: NSR a/p: 57 f no sig pmhx here with speech problems sec to acute CVA. cva: -MRI with evidence of acute L brain ischemic infarct -carotids w/o stenosis, echo unrevealing -tele normal thus far -? etiology of stroke (Met Syndrome plus intense mental stress?). -for RENETTA tomorrow -will also plan outpt 30 day monitor, though notably, if she has PAF her CHADS- VASC score is 0 (except for female gender) and would be highly unlikely for afib to cause a stroke in her (risk is close to 0 in pts with her profile, in multiple studies of CHADS-VASC score) -on asa, statin. BP at target (w/o meds) -neuro input appreciated
[2018-03-10] MEDS: ASPIRIN COATED 81 MG TABLET.EC PO SCH (09:19)
[2018-03-10] MEDS: AZITHROMYCIN 250 MG TABLET PO SCH (09:19)
--- NOTE | 2018-03-10 12:17 | PN ---
Progress Note (short form) - Note Progress Note: Neurology HISTORY OF PRESENT ILLNESS: 57 yr old woman with no significant PMhx presented to ED one day before admission for difficulty swallowing and talking for 1 day. She had been seen at urgent care and dx'd with strep throat (rapid bedside at urgent care was positive). She was started on Azithromycin 250mg po 1 tablet which she took one dose as well as second dose. She woke up she notes a change in her voice and trouble swallowing. As per her she was having trouble putting words together and the tone of her voice is harsher now than her usual. felt that speech was going in and out, this is still not her baseline for speech pattern and voice. MRI completed, Infarct noted in L frontal waggoner radiata but no extremity weakness. Carotid dopplers completed and without HD significant stenosis. Echo reviewed and normal LV function. Discussed with cardiology, plan for RENETTA. Discussed with patient who would like to have procedure to evaluate further. She's also planned modified barium tomorrow. Active Medications Aspirin (Ecotrin -) 81 mg PO DAILY [facility] Last Admin: 03/10/18 09:19 Dose: 81 mg Atorvastatin Calcium (Lipitor -) 40 mg PO HS [facility] Last Admin: 03/09/18 21:05 Dose: 40 mg Heparin Sodium (Porcine) (Heparin -) 5,000 unit SQ TID [facility] Last Admin: 03/10/18 05:35 Dose: Not Given PHYSICAL EXAMINATION Vital Signs Temperature 97.6 F 03/10/18 09:00 Pulse Rate 74 03/10/18 09:00 Respiratory Rate 20 03/10/18 09:00 Blood Pressure 145/76 03/10/18 09:00 O2 Sat by Pulse Oximetry (%) 98 03/10/18 09:00 GENERAL: Awake, alert, and fully oriented, in no acute distress. HEAD: Normal with no signs of trauma. EYES: Pupils equal, round and reactive to light, extraocular movements intact, sclera anicteric, conjunctiva clear. No lid lag. EARS, NOSE, THROAT: oropharynx clear with erythema, no exudates, no tonsilar enlargement, Moist mucous membranes. NECK: Normal range of motion, supple without lymphadenopathy, JVD, or masses. LUNGS: Breath sounds equal, clear to auscultation bilaterally. No wheezes, and no crackles. No accessory muscle use. HEART: Regular rate and rhythm, normal S1 and S2 without murmur, rub or gallop. ABDOMEN: obese, Soft, nontender, not distended, normoactive bowel sounds, no guarding, no rebound, no masses. MUSCULOSKELETAL: Normal range of motion at all joints. No bony deformities or tenderness. No CVA tenderness. well-healed scar in upper thoracic spine. no paraspinal tenderness UPPER EXTREMITIES: 2+ radial pulses, warm, well-perfused. No cyanosis. No clubbing. No peripheral edema. LOWER EXTREMITIES: 2+ DP pulses, warm, well-perfused. No calf tenderness. No peripheral edema. 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 uvula and tongue midline PSYCHIATRIC: Cooperative. Good eye contact. Appropriate mood and affect. SKIN: Warm, dry, normal turgor, no rashes or lesions noted, normal capillary refill. CBC, BMP 03/09/18 07:00 03/09/18 07:00 MRI brain reviewed Echo reviewed Carotid Doppler reviewed ASSESSMENT/PLAN: 57 yr old woman with no significant PMhx presented to ED one day before admission for difficulty swallowing and talking for 1 day. Infarct noted in L frontal waggoner radiata but no extremity weakness. Carotid dopplers completed and without HD significant stenosis Echo reviewed, normal LV function planned for modified barium swallow RENETTA per environmental analyst On ASA 81, can hold for procedures, restart after as soon as able Continue Statin for hyperlipidemia Advised speaking as much as possible Facial exercises can be continued CT of neck also reviewed and negative. Telemetry monitoring No longer permissive HTN, goal range <130/90 DVT ppx Discussed with patient, in agreement
--- NOTE | 2018-03-10 13:22 | PN ---
Teaching Attending Note Name of Resident: Jason Foster SUBJECTIVE: Patient seen and examined. speech with improvement, feels like her tongue is swollen, overall feels better. OBJECTIVE: Vital Signs Period Temp Pulse Resp BP Sys/Odell Pulse Ox Last 24 Hr 97.4 F-98.3 F 67-74 16-20 105-158/61-78 98-98 Intake & Output 03/07/18 03/08/18 03/09/18 03/10/18 23:59 23:59 23:59 23:59 Intake Total 570 1290 350 Balance 570 1290 350 Weight 195 lb 218 lb 9.6 oz general: ambulating in room, no acute distress HEENT; no tongue swelling, deviation to right no exam today, otherwise unchanged exam Neuro: speech better, unchanged exam othewise Extremities: no edema Home Medication List Medication Instructions Recorded Confirmed Type NK [No Known Home Medication] 03/06/18 03/07/18 History Active Medications Generic Name Dose Route Start Last Admin Trade Name Freq PRN Reason Stop Dose Admin Aspirin 81 mg 03/08/18 10:00 03/10/18 09:19 Ecotrin - PO 81 mg DAILY [facility] Administration Atorvastatin Calcium 40 mg 03/08/18 22:00 03/09/18 21:05 Lipitor - PO 40 mg HS [facility] Administration Heparin Sodium (Porcine) 5,000 unit 03/08/18 06:00 03/10/18 05:35 Heparin - SQ Not Given TID [facility] Microbiology 03/07/18 20:21 Blood - Peripheral Venous Blood Culture - Preliminary NO GROWTH OBTAINED AFTER 48 HOURS, INCUBATION TO CONTINUE FOR 3 DAYS. 03/07/18 20:21 Blood - Peripheral Venous Blood Culture - Preliminary NO GROWTH OBTAINED AFTER 48 HOURS, INCUBATION TO CONTINUE FOR 3 DAYS. 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 Neuro checks. MRI brain noted. No events on telemetry. Cardiology input/2D echo results noted. Discussed with Dr. Russell, plan for RENETTA tomorrow. Blood cultures neg so far. Azithromycin [address] neck neg for collection or concerns. Continue AsA/sttin. speech/swallow eval noted, for MBS. will need outpatient speech therapy. PT eval noted, home with assist Dispo plan for home d/c in 24 hours pending MBS and RENETTA Plan discussed with patient in detail, all questions answered.
[2018-03-10] MEDS ORDERED: SENNOSIDES 8.6MG TABLET (FP) PO PRN (20:00)
[2018-03-10] MEDS ORDERED: POLYETHYLENE GLYCOL 3350 119 GM BTL PO PRN (20:00)
--- NOTE | 2018-03-10 20:51 | HOSP ---
Subjective - Review of Symptoms Subjective: Asked by nurse to call PCP Dr. Olmos (sp?) for lab values performed on . -Spoke to Dr. Olmos at 8:47pm -Dr. Olmos reported that ESR was 61 and CRP of 20. Lyme disease was negative. She also had an elevated WBC ~12 -Will sign out to day team Dr. Yaz D.O. Physical Examination Vital Signs: Vital Signs Temperature 97.7 F 03/10/18 18:17 Pulse Rate 84 03/10/18 18:17 Respiratory Rate 18 03/10/18 18:17 Blood Pressure 146/94 03/10/18 18:17 O2 Sat by Pulse Oximetry (%) 98 03/10/18 09:00 Labs: CBC, BMP 03/09/18 07:00 03/09/18 07:00 Visit type - Emergency Visit Emergency Visit: No - New Patient This patient is new to me today: Yes Date on this admission: 03/10/18 - Critical Care Critical Care patient: No
[2018-03-10] MEDS: ATORVASTATIN CA 40 MG TABLET (FP) PO SCH (21:12)
[2018-03-11] MEDS: HEPARIN NA (PORCINE) 5,000 UNITS/ML 1ML VIAL SQ SCH ×2 (05:02→13:12)
--- NOTE | 2018-03-11 07:44 | PN ---
Teaching Attending Note Name of Resident: Cas Shipley ATTENDING PHYSICIAN STATEMENT I saw and evaluated the patient. I reviewed the resident's note and discussed the case with the resident. I agree with the resident's findings and plan as documented with exceptions below. SUBJECTIVE: Patient seen and examined. speech continues to improve, no new concerns. OBJECTIVE: Vital Signs Period Temp Pulse Resp BP Sys/Odell Pulse Ox Last 24 Hr 97.6 F-98.3 F 63-84 18-20 123-152/59-94 98-98 Intake & Output 03/08/18 03/09/18 03/10/18 03/11/18 23:59 23:59 23:59 23:59 Intake Total 570 1290 1000 10 Balance 570 1290 1000 10 Weight 218 lb 9.6 oz General: lying in bed in no acute distress HEENT: no tongue swelling, mild deviation to right Neuro: mild tongue deviation to right, speech improved, otherwise unchanged exam. Home Medication List Medication Instructions Recorded Confirmed Type NK [No Known Home Medication] 03/06/18 03/07/18 History Active Medications Generic Name Dose Route Start Last Admin Trade Name Freq PRN Reason Stop Dose Admin Aspirin 81 mg 03/08/18 10:00 03/10/18 09:19 Ecotrin - PO 81 mg DAILY SANTOS Administration Atorvastatin Calcium 40 mg 03/08/18 22:00 03/10/18 21:12 Lipitor - PO 40 mg HS SANTOS Administration Heparin Sodium (Porcine) 5,000 unit 03/08/18 06:00 03/11/18 05:02 Heparin - SQ Not Given TID SANTOS Polyethylene Glycol 17 gm 03/10/18 20:00 03/10/18 21:13 Miralax (For Daily Use) - PO 17 gm BID PRN Administration CONSTIPATION Senna 1 tab 03/10/18 20:00 03/10/18 21:12 Senna - PO 1 tab BID PRN Administration CONSTIPATION Microbiology 03/07/18 20:21 Blood - Peripheral Venous Blood Culture - Preliminary NO GROWTH OBTAINED AFTER 72 HOURS, INCUBATION TO CONTINUE FOR 2 DAYS. 03/07/18 20:21 Blood - Peripheral Venous Blood Culture - Preliminary NO GROWTH OBTAINED AFTER 72 HOURS, INCUBATION TO CONTINUE FOR 2 DAYS. 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 Neuro checks. MRI brain noted. No events on telemetry. Cardiology input/2D echo results noted. Discussed with Dr. Russell, plan for RENETTA today. Blood cultures neg so far. Azithromycin [address] neck neg for collection or concerns. Continue AsA/sttin. speech/swallow eval noted, no need for MBS, outpatient speech PT. Overnight events noted, elevated ESR/CRP by outpatient MD, will need outpatient rheumatological work up and follow up. NO indication for MRA as discussed with neurology. PT eval noted, Plan for home d/c later today after RENETTA if no concerns. Plan discussed with patient in detail, all questions answered.
--- NOTE | 2018-03-11 09:38 | PN ---
Progress Note (short form) - Note Progress Note: Neurology HISTORY OF PRESENT ILLNESS: 57 yr old woman with no significant PMhx presented to ED one day before admission for difficulty swallowing and talking for 1 day. She had been seen at urgent care and dx'd with strep throat (rapid bedside at urgent care was positive). She was started on Azithromycin 250mg po 1 tablet which she took one dose as well as second dose. She woke up she notes a change in her voice and trouble swallowing. As per her she was having trouble putting words together. felt that speech was going in and out, this is still not her baseline for speech pattern and voice. MRI completed, Infarct noted in L frontal waggoner radiata but no extremity weakness. Carotid dopplers completed and without HD significant stenosis. Echo reviewed and normal LV function. Discussed with cardiology, plan for RENETTA. Discussed with patient who would like to have procedure to evaluate further, planned for today. She's also planned modified barium swallow. She feels her speech is improving and also Facial droop better with exercises. Remains on ASA 81 with Lipitor 40mg. Active Medications Aspirin (Ecotrin -) 81 mg PO DAILY [facility] Last Admin: 03/10/18 09:19 Dose: 81 mg Atorvastatin Calcium (Lipitor -) 40 mg PO HS [facility] Last Admin: 03/10/18 21:12 Dose: 40 mg Heparin Sodium (Porcine) (Heparin -) 5,000 unit SQ TID [facility] Last Admin: 03/11/18 05:02 Dose: Not Given Polyethylene Glycol (Miralax (For Daily Use) -) 17 gm PO BID PRN PRN Reason: CONSTIPATION Last Admin: 03/10/18 21:13 Dose: 17 gm Senna (Senna -) 1 tab PO BID PRN PRN Reason: CONSTIPATION Last Admin: 03/10/18 21:12 Dose: 1 tab PHYSICAL EXAMINATION Vital Signs Period Temp Pulse Resp BP Sys/Odell Pulse Ox Last 24 Hr 97.6 F-98.3 F 63-84 18-20 123-152/59-94 98 GENERAL: Awake, alert, and fully oriented, in no acute distress. HEAD: Normal with no signs of trauma. EYES: Pupils equal, round and reactive to light, extraocular movements intact, sclera anicteric, conjunctiva clear. No lid lag. EARS, NOSE, THROAT: oropharynx clear with erythema, no exudates, no tonsilar enlargement, Moist mucous membranes. NECK: Normal range of motion, supple without lymphadenopathy, JVD, or masses. LUNGS: Breath sounds equal, clear to auscultation bilaterally. No wheezes, and no crackles. No accessory muscle use. HEART: Regular rate and rhythm, normal S1 and S2 without murmur, rub or gallop. ABDOMEN: obese, Soft, nontender, not distended, normoactive bowel sounds, no guarding, no rebound, no masses. MUSCULOSKELETAL: Normal range of motion at all joints. No bony deformities or tenderness. No CVA tenderness. well-healed scar in upper thoracic spine. no paraspinal tenderness UPPER EXTREMITIES: 2+ radial pulses, warm, well-perfused. No cyanosis. No clubbing. No peripheral edema. LOWER EXTREMITIES: 2+ DP pulses, warm, well-perfused. No calf tenderness. No peripheral edema. NEUROLOGICAL: Cranial nerves II-XII intact, slightly hypophonic but no dysarthria, R facial fold flat, 5/5 hand tube blower/extension and flexion in triceps/ biceps/wrists, hip extension, dorsi/plantar flexion. uvula and tongue midline PSYCHIATRIC: Cooperative. Good eye contact. Appropriate mood and affect. SKIN: Warm, dry, normal turgor, no rashes or lesions noted, normal capillary refill. CBCD WBC 9.2 K/mm3 (4.0-10.0) D 03/09/18 07:00 RBC 4.31 M/mm3 (3.60-5.2) 03/09/18 07:00 Hgb 12.4 GM/dL (10.7-15.3) 03/09/18 07:00 Hct 37.8 % (32.4-45.2) 03/09/18 07:00 MCV 87.7 fl (80-96) 03/09/18 07:00 MCHC 32.9 g/dl (32.0-36.0) 03/09/18 07:00 RDW 16.0 % (11.6-15.6) H 03/09/18 07:00 Plt Count 319 K/MM3 (134-434) 03/09/18 07:00 MPV 9.1 fl (7.5-11.1) 03/09/18 07:00 CMP Sodium 141 mmol/L (136-145) 05/12/18 07:00 Potassium 4.3 mmol/L (3.5-5.1) 03/09/18 07:00 Chloride 106 mmol/L (98-107) 03/09/18 07:00 Carbon Dioxide 28 mmol/L (21-32) 03/09/18 07:00 Anion Gap 7 (8-16) L 03/09/18 07:00 BUN 19 mg/dL (7-18) H 03/09/18 07:00 Creatinine 0.8 mg/dL (0.55-1.02) 03/09/18 07:00 Creat Clearance w eGFR > 60 (>60) 03/09/18 07:00 Calcium 8.3 mg/dL (8.5-10.1) L 03/09/18 07:00 Total Bilirubin 0.4 mg/dL (0.2-1.0) D 03/09/18 07:00 AST 15 U/L (15-37) 03/09/18 07:00 ALT 21 U/L (12-78) 03/09/18 07:00 Alkaline Phosphatase 92 U/L (45-117) 03/09/18 07:00 Total Protein 6.9 g/dl (6.4-8.2) 03/09/18 07:00 Albumin 3.4 g/dl (3.4-5.0) 03/09/18 07:00 MRI brain reviewed Echo reviewed Carotid Doppler reviewed ASSESSMENT/PLAN: 57 yr old woman with no significant PMhx presented to ED one day before admission for difficulty swallowing and talking for 1 day. Infarct noted in L frontal waggoner radiata but no extremity weakness. 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 Telemetry monitoring No longer permissive HTN, goal range <130/90 DVT ppx Discussed with patient, in agreement
[2018-03-11] MEDS: ASPIRIN COATED 81 MG TABLET.EC PO SCH (10:06)
--- NOTE | 2018-03-11 11:11 | PN ---
Progress Note, [employer] - Note Progress Note: Pt performing oral motor exercises independently TID with good effect. Facial wewakness improving. Tongue more saymmetric. Speech more precise. Not yet at baseline. Pt tolerating diet well with no symptoms or signs of aspiration. Mild oropharyngeal dysphagia. Pending RENETTA/NPO today. Suggest d/c MBS at this time. Swallowing exercises given for continues practice.
--- NOTE | 2018-03-11 12:26 | MSN ---
Progress Note (short form) - Note Progress Note: CHIEF COMPLAINT: difficulty talking/swallowing HISTORY OF PRESENT ILLNESS: Overnight, there were no acute events. Patient remained afebrile and had completed her antibiotics course for strep pharyngitis. Team was notified about PCP call explaining elevated ESR and CRP levels. Patient was seen and examined at the bedside. Patient stated that her speech improved and that she was able to swallow foods and liquids better. She felt that she was returning more to her baseline. Patient stated that her nausea that she had over the weekend had resolved. Patient did not have acute complaints of chest pain, shortness of breath, abd pain, n/v/c/d, focal weakness , numbness/tingling, headache, dizziness, lightheadedness. Patient was explained to about elevated ESR and CRP levels that are nonspecific and will require follow-up with her PCP and possible referral to rheumatology. PAST MEDICAL HISTORY: no significant past medical history PAST SURGICAL HISTORY: x3, appendectomy Social History: Smoking: denies Alcohol: denies Drugs: denies REVIEW OF SYSTEMS: CONSTITUTIONAL: Absent: fever, chills, diaphoresis, generalized weakness, malaise, loss of appetite, weight change HEENT: Absent: rhinorrhea, nasal congestion, throat pain, throat swelling, difficulty swallowing, mouth swelling, ear pain, eye pain, visual changes CARDIOVASCULAR: Absent: chest pain, syncope, palpitations, irregular heart rate, lightheadedness , peripheral edema RESPIRATORY: Absent: cough, shortness of breath, dyspnea with exertion, orthopnea, wheezing, stridor, hemoptysis GASTROINTESTINAL: Absent: abdominal pain, abdominal distension, nausea, vomiting, diarrhea, constipation, melena, hematochezia GENITOURINARY: Absent: dysuria, frequency, urgency, hesitancy, hematuria, flank pain, genital pain MUSCULOSKELETAL: Absent: myalgia, arthralgia, joint swelling, back pain, neck pain SKIN: Absent: rash, itching, pallor HEMATOLOGIC/IMMUNOLOGIC: Absent: easy bleeding, easy bruising, lymphadenopathy, frequent infections ENDOCRINE: Absent: unexplained weight gain, unexplained weight loss, heat intolerance, cold intolerance NEUROLOGIC: dysphagia, dysarthria Absent: headache, focal weakness or paresthesias, dizziness, unsteady gait, seizure, mental status changes, bladder or bowel incontinence PSYCHIATRIC: Absent: anxiety, depression, suicidal or homicidal ideation, hallucinations. PHYSICAL EXAMINATION GENERAL: Awake, alert, and fully oriented, in no acute distress. HEAD: Normal with no signs of trauma. EYES: Pupils equal, round and reactive to light, extraocular movements intact, sclera anicteric, conjunctiva clear. No lid lag. NECK: Normal range of motion, supple without lymphadenopathy, JVD, or masses. LUNGS: Breath sounds equal, clear to auscultation bilaterally. No wheezes, and no crackles. No accessory muscle use. HEART: Regular rate and rhythm, normal S1 and S2 without murmur, rub or gallop. ABDOMEN: Soft, nontender, not distended, normoactive bowel sounds, no guarding, no rebound, no masses. No hepatomegaly or splenomegaly. MUSCULOSKELETAL: Normal range of motion at all joints. No bony deformities or tenderness. No CVA tenderness. UPPER EXTREMITIES: 2+ pulses, warm, well-perfused. No cyanosis. No clubbing. Cap refill <2 seconds. No peripheral edema. LOWER EXTREMITIES: 2+ pulses, warm, well-perfused. No calf tenderness. No peripheral edema. NEUROLOGICAL: Visual leonardo intact, extraocular movements intact, sensation on face intact to gross touch and pinprick, facial droop on R, hearing intact to finger rub, palate equal bilaterally, uvula midline, gag reflex intact, SCM and trapezius muscle strength 5/5, tongue with mild R deviation. Sensation intact to gross touch and pinprick in upper and lower extremities bilaterally. 5/5 muscle strength in upper and lower extremities bilaterally. 2/4 patellar, calcaneal, biceps, triceps reflexes. Proprioception intact. No dysmetria on finger to nose and heel to agarwal. PSYCHIATRIC: Cooperative. Good eye contact. Appropriate mood and affect. SKIN: Warm, dry, normal turgor, no rashes or lesions noted. Allergies Allergy/AdvReac Type Severity Reaction Status Date / Time Penicillins Allergy Difficulty Verified 03/07/18 16:56 Breathing Sulfa (Sulfonamide Allergy Rash Verified 03/07/18 16:56 Antibiotics) Last Vital Signs Temp Pulse Resp BP Pulse Ox 97.6 F 63 18 127/77 98 03/11/18 06:00 03/11/18 06:00 03/11/18 06:00 03/11/18 06:00 03/10/18 21:00 CBC, BMP 03/09/18 07:00 03/09/18 07:00 CMP Sodium 141 mmol/L (136-145) 03/09/18 07:00 Potassium 4.3 mmol/L (3.5-5.1) 03/09/18 07:00 Chloride 106 mmol/L (98-107) 03/09/18 07:00 Carbon Dioxide 28 mmol/L (21-32) 03/09/18 07:00 Anion Gap 7 (8-16) L 03/09/18 07:00 BUN 19 mg/dL (7-18) H 03/09/18 07:00 Creatinine 0.8 mg/dL (0.55-1.02) 03/09/18 07:00 Creat Clearance w eGFR > 60 (>60) 03/09/18 07:00 Random Glucose 91 mg/dL (74-106) 03/09/18 07:00 Hemoglobin A1c % 6.3 % (4.8-6.0) H 03/08/18 05:35 Calcium 8.3 mg/dL (8.5-10.1) L 03/09/18 07:00 Phosphorus 3.4 mg/dL (2.5-4.9) 03/08/18 05:35 Magnesium 2.3 mg/dL (1.8-2.4) 03/08/18 05:35 Total Bilirubin 0.4 mg/dL (0.2-1.0) D 03/09/18 07:00 AST 15 U/L (15-37) 03/09/18 07:00 ALT 21 U/L (12-78) 03/09/18 07:00 Alkaline Phosphatase 92 U/L (45-117) 03/09/18 07:00 Creatine Kinase 398 IU/L (26-192) H 03/07/18 20:21 Creatine Kinase Index 0.5 % (0.0-5.0) 03/07/18 20:21 CK-MB (CK-2) 2.174 ng/mL (0.5-3.6) 03/07/18 20:21 Troponin I < 0.02 ng/ml (0.00-0.05) 03/07/18 20:21 Total Protein 6.9 g/dl (6.4-8.2) 03/09/18 07:00 Albumin 3.4 g/dl (3.4-5.0) 03/09/18 07:00 Triglycerides 94 mg/dL (35-160) 03/08/18 05:35 Cholesterol 152 mg/dL (50-200) 03/08/18 05:35 Total LDL Cholesterol 107 mg/dL (5-100) H 03/08/18 05:35 HDL Cholesterol 39 mg/dL (40-60) L 03/08/18 05:35 TSH 1.24 uIU/ml (0.358-3.74) 03/08/18 05:35 Active Medications Generic Name Dose Route Start Last Admin Trade Name Freq PRN Reason Stop Dose Admin Aspirin 81 mg 03/08/18 10:00 03/11/18 10:06 Ecotrin - PO 81 mg DAILY SANTOS Administration Atorvastatin Calcium 40 mg 03/08/18 22:00 03/10/18 21:12 Lipitor - PO 40 mg HS SANTOS Administration Heparin Sodium (Porcine) 5,000 unit 03/08/18 06:00 03/11/18 05:02 Heparin - SQ Not Given TID SANTOS Polyethylene Glycol 17 gm 03/10/18 20:00 03/10/18 21:13 Miralax (For Daily Use) - PO 17 gm BID PRN Administration CONSTIPATION Senna 1 tab 03/10/18 20:00 03/10/18 21:12 Senna - PO 1 tab BID PRN Administration CONSTIPATION IMAGING: HEAD CT: elliptical in shape hypodensity in left waggoner radiata CHEST X-RAY: no acute pathology BRAIN MRI: acute infarct in left frontal waggoner radiata, punctuate focus in R hippocampal formation CT OF SOFT TISSUE NECK: no abscess noted, asymettric positioning of R tongue base. 6mm R upper lobe pulmonary nodule ECHOCARDIOGRAM: LVEF within normal limits, mild mitral regurgitation, tricuspid regurgitation, no pericardial effusions RENETTA: normal size and function, no thrombus visualized, no significant valve dysfunction ASSESSMENT/PLAN: Patient is a 57 y/o female with no significant past medical history who presented with dysphagia and dysarthria s/p L waggoner radiata ischemic stroke. L waggoner radiata ischemia stroke - neurology consulted, Dr. Arteaga, recs appreciated - imaging as above - neuro checks - aspirin 81mg - Lipitor 40mg - Physical therapy evaluation, patient walked 300ft - Speech and swallow evaluation noted mild impairment. recommended regular diet , thin liquids, Oromotor exercises - cardiology consulted for possible embolic origin of stroke, recs appreciated - RENETTA as above - telemetry - Echo as above - blood cultures for possible infectious source, CT of soft tissues negative Strep Pharyngitis - afebrile - leukocytosis 9.2 decreased from 14.2 - antibiotics completed, Azithromycin 5 day course F/E/N - no fluids currently needed - electrolytes within normal limits - replete as necessary - NPO for RENETTA DVT PPx - heparin 5000 units subq tid - patient currently refusing Disposition - stable for discharge home - follow up with primary care, rheumatology, neurology, speech therapy
[2018-03-11] MEDS ORDERED: LIDOCAINE VISCOUS 2% ORAL/TOP 20 ML UNIT-DOSE CUP ONE (14:19)
[2018-03-11] MEDS ORDERED: LIDOCAINE HCL/PF 2% SDV 5ML VIAL ONE (14:28)
[2018-03-11] MEDS ORDERED: PROPOFOL 20 ML ONE ×2 (14:28)
[2018-03-11] MEDS ORDERED: LIDOCAINE VISCOUS 2% ORAL/TOP 20 ML UNIT-DOSE CUP MM ONE (14:42)
--- NOTE | 2018-03-11 15:16 | PROC ---
Transesophageal Echocardiogram - Pre-Procedure Indications: Evaluate for embolus Risks and Benefits Explained: Yes Consent on Chart: Yes - Procedure Procedure Done: in Endoscopy Suite Medication given: propofol sedation per anesthesia Findings: Negative bubble study. Remarks: See scanned RENETTA report for detailed findings.
[2018-03-11 15:28] VITALS: TEMP 97.5
--- NOTE | 2018-03-11 15:39 | DS ---
Physical Exam: SUBJECTIVE: Patient seen and examined at bedside. No acute events overnight. Pt' s smile and speech are improving. Pt feels well. OBJECTIVE: Vital Signs Period Temp Pulse Resp BP Sys/Odell Pulse Ox Last 24 Hr 97.6 F-98.3 F 63-84 18-20 115-152/55-94 98 PHYSICAL EXAM GENERAL: The patient is awake, alert, and fully oriented, in no acute distress. HEAD: Normal with no signs of trauma. EYES: PERRL, extraocular movements intact, sclera anicteric, conjunctiva clear. No ptosis. ENT: oropharynx clear without exudates, moist mucous membranes. NECK: Trachea midline, full range of motion, supple. LUNGS: Breath sounds equal, clear to auscultation bilaterally, no wheezes, no crackles, no accessory muscle use. HEART: Regular rate and rhythm, S1, S2 without murmur, rub or gallop. ABDOMEN: Soft, nontender, nondistended, normoactive bowel sounds, no guarding, no rebound, no hepatosplenomegaly, no masses. EXTREMITIES: 2+ pulses, warm, well-perfused, no edema. NEUROLOGICAL: exam improved but not resolved. speech is more clear and flows more fluidly. R facial droop still present. Dysarthric speech, gait not observed. Strength 5/5 throughout. Reflexes intact throughout. Sensation intact. PSYCH: Normal mood, normal affect. SKIN: Warm, dry, normal turgor, no rashes or lesions noted LABS HOSPITAL COURSE: Date of Admission:03/07/18 Date of Discharge: 03/11/18 Pt is a 57 yr woman with recent hx of paraspinal cyst abscess drainage, being treated for strep throat found to have CVA on MRI. Pt admitted for evaluation and treatment of stroke. Pt had R facial droop and mild dysarthria. MRI demonstrated L frontal waggoner radiata stroke with punctate lesion in R hipposcampus. Pt was treated with ASA and statin. She was outside the tpa window on arrival. Pt clinically improved. Pt was seen by Cardiology, Neurology, speech pathology. Pt also had CT of the neck soft tissue which was negative for abscess and showed tongue base asymmetry. Pt had an echo, which was unremarkable. EKG and tele were neg for AFib/flutter. Carotid dopplers were negative for significant stenosis. Bedside swallow eval demonstrated no signs of aspiration. Pt also had a strep pharyngitis prior to arrival in ED. Her outpt treatment was continued with Azithromycin. She was given colace and senna for constipation. Pt adamantly refused Hep SubQ and SCDs throughout her hospital stay. During her hospital stay, the pt spoke with her PCP from [facility] who told her about a recent lab test result. Her ESR and CRP had been elevated. This was discussed with the patient and she was advised to follow up out pt and ask her PCP about seeing a ambulatory analyst. Pt was given instructions on medication, follow up with PCP. She was advised not to drive. Pt is currently comfortable, afebrile, and stable for d/c. Cas Shipley MD PGY-1 IM Minutes to complete discharge: 30 Discharge Summary Reason For Visit: CEREBROVASCULAR ACCIDENT (CVA) Current Active Problems CVA (cerebral vascular accident) (Acute) Speech abnormality (Acute) Strep throat (Acute) Condition: Good - Instructions Diet, Activity, Other Instructions: You are being sent home with: -ASA 81 mg daily -Lipitor 40 mg at night You need to follow up with your primary care doctor, your neurologist (Dr. Arteaga), and your grounds and nursery specialist (Dr. Russell) within 1 week. Speak with your primary care doctor about possibly having a consultation with a [employer]. Continue doing your speech and expression exercises, and see your speech pathologist. You will need a 30 day event monitor from your grounds and nursery specialist. Do not drive until you see your doctor. If you develop new symptoms or if your symptoms recur, please return to the emergency department immediately. Disposition: HOME - Home Medications Comprehensive Discharge Medication List: Ambulatory Orders Aspirin Coated [Ecotrin -] 81 mg PO DAILY #30 tablet.ec 03/11/18 Atorvastatin Ca [Lipitor] 40 mg PO HS #30 tablet 03/11/18 This patient is new to me today: No Emergency Visit: No Critical Care patient: No - Discharge Referral Referred to [facility] No
[2018-03-11 15:52] VITALS: BP 135/75; PULSE 78
--- NOTE | 2018-03-11 16:42 | PN ---
Progress Note (short form) - Note Progress Note: Chief Complaint: CVA History of Present Illness: feels well. + phelgm in throat persists. thinks her speech is gradually improving. no cp, sob, palpit had brsyon today, no complications. Current Medications Aspirin (Ecotrin -) 81 mg PO DAILY [facility] Last Admin: 03/11/18 10:06 Dose: 81 mg Atorvastatin Calcium (Lipitor -) 40 mg PO HS [facility] Last Admin: 03/10/18 21:12 Dose: 40 mg Heparin Sodium (Porcine) (Heparin -) 5,000 unit SQ TID [facility] Last Admin: 03/11/18 13:12 Dose: Not Given Polyethylene Glycol (Miralax (For Daily Use) -) 17 gm PO BID PRN PRN Reason: CONSTIPATION Last Admin: 03/10/18 21:13 Dose: 17 gm Senna (Senna -) 1 tab PO BID PRN PRN Reason: CONSTIPATION Last Admin: 03/10/18 21:12 Dose: 1 tab - Objective Vital Signs: Vital Signs - 24 hr 03/10/18 03/10/18 03/10/18 18:17 21:00 22:00 Temperature 97.7 F 98.3 F Pulse Rate 84 84 Respiratory 18 20 20 Rate Blood Pressure 146/94 152/94 O2 Sat by Pulse 98 Oximetry (%) 03/11/18 03/11/18 03/11/18 02:00 06:00 10:00 Temperature 98.2 F 97.6 F 98.2 F Pulse Rate 65 63 84 Respiratory 20 18 18 Rate Blood Pressure 123/59 127/77 152/90 O2 Sat by Pulse 98 Oximetry (%) 03/11/18 03/11/18 03/11/18 14:15 15:21 15:36 Temperature 97.7 F 97.5 F L Pulse Rate 75 74 67 Respiratory 18 20 16 Rate Blood Pressure 115/55 135/63 138/71 O2 Sat by Pulse 98 97 Oximetry (%) 03/11/18 03/11/18 15:51 15:58 Temperature Pulse Rate 78 78 Respiratory 16 16 Rate Blood Pressure 135/75 135/75 O2 Sat by Pulse 97 97 Oximetry (%) Intake & Output 03/09/18 03/10/18 03/11/18 03/12/18 07:59 07:59 07:59 07:59 Intake Total 560 1170 1010 500 Balance 560 1170 1010 500 Constitutional: Yes: Well Nourished, No Distress, Calm Cardiovascular: Yes: Regular Rate and Rhythm, S1, S2. No: Gallop, Murmur Respiratory: Yes: Regular, CTA Bilaterally. No: Accessory Muscle Use, Rales, Wheezes Extremities: No: Cold Edema: No Neurological: Yes: Alert, Oriented Psychiatric: No: Agitated Labs: no CBC, BMP today 03/09/18 07:00 03/09/18 07:00 Assessment/Plan ecg: sr, nl intervals, no ischemic changes BRYSON 02/2018: nl lv/rv/valves. no la/annie/ra/raa thrombus. Neg bubble study at rest and with simulated valsalva. Echo 03/15: nl LV, nl RV, nl valves tele: NSR a/p: 57 f no sig pmhx here with speech problems sec to acute CVA. cva: -MRI with evidence of acute L brain ischemic infarct -carotids w/o stenosis, echo unrevealing -tele normal thus far -? etiology of stroke (Met Syndrome plus intense mental stress?). -No source of embolus identified on BRYSON. -will also plan outpt 30 day monitor, though notably, if she has PAF her CHADS- VASC score is 0 (except for female gender) and would be highly unlikely for afib to cause a stroke in her (risk is close to 0 in pts with her profile, in multiple studies of CHADS-VASC score) -on asa, statin. BP at target (w/o meds) -neuro input appreciated
== END 2018-03-11 19:12 | disposition home or self-care (01) | DRG 66 ==
LOC: JER 16:51 → JERBED 22:15 → J4S 03-08 03:22
PROVIDERS: ADMIT Internal Medicine; ATTEND Hospitalist
PROC: B246ZZ4 Ultrasonography of Right and Left Heart, Transesophageal (ICD-10-PCS; principal; 2018-03-11 13:30)
DX: I63.9 Cerebral infarction, unspecified (principal); J02.0 Streptococcal pharyngitis; K59.00 Constipation, unspecified
CPT/HCPCS: 36415; 70491-TC; 70551-TC; 71045-TC-FY; 80048; 80053; 80061; 82550; 82553; 83036; 83721; 83735; 84100; 84443; 84484; 85025; 85610; 85730; 87040; 87633; 87804; 93005; 93010; 93306-TC; 93312; 93325; 93880-TC; 97116-GP; 97161-GP; 99283-25

== ENCOUNTER 2023-10-14 17:42 | Emergency (ER) | payer BC, OTHER ==
[2023-10-14 18:04] VITALS: BP 193/94; PULSE 98; RESP 18; TEMP 98.3; BMI 37.8
[2023-10-14] MEDS ORDERED: ACETAMINOPHEN 500 MG TABLET (FP) ONE (21:26)
[2023-10-14] MEDS ORDERED: ACETAMINOPHEN 500 MG TABLET (FP) PO ONE (21:26)
[2023-10-14] MEDS ORDERED: BACITRACIN 0.9 GM PACKET TP ONE (21:26)
[2023-10-14] MEDS ORDERED: BACITRACIN ZINC 15 GM TUBE TOPICAL OINTMENT ONE (21:26)
== END 2023-10-14 21:50 | disposition home or self-care (01) ==
LOC: JERFT 17:42
DX: T22.032A Burn of unspecified degree of left upper arm, initial encounter (principal); T22.031A Burn of unspecified degree of right upper arm, initial encounter; X12.XXXA Contact with other hot fluids, initial encounter
CPT/HCPCS: 99282-25